=== PATIENT | female | born 1950 | race Caucasian/White ===

== ENCOUNTER → 2020-08-07 11:17 | Outpatient (BNVA) | payer MEDICARE, MEDICAID, SELFPAY | PROVIDERS: PCP Nurse Practitioner Family; Visit Provider Internal Medicine Rheumatology | DX: M05.79 Rheumatoid arthritis with rheumatoid factor of multiple sites without organ or systems involvement (principal); R76.8 Other specified abnormal immunological findings in serum; M15.4 Erosive (osteo)arthritis; F17.210 Nicotine dependence, cigarettes, uncomplicated; Z79.899 Other long term (current) drug therapy | CPT/HCPCS: 99204 ==

== ENCOUNTER → 2020-11-25 14:31 | Outpatient (BNVA) | payer MEDICARE, MEDICAID, SELFPAY | PROVIDERS: PCP Nurse Practitioner Family; Visit Provider Internal Medicine Rheumatology | DX: M05.79 Rheumatoid arthritis with rheumatoid factor of multiple sites without organ or systems involvement (principal); Z79.899 Other long term (current) drug therapy; Z79.52 Long term (current) use of systemic steroids; M15.4 Erosive (osteo)arthritis; R76.8 Other specified abnormal immunological findings in serum; F17.210 Nicotine dependence, cigarettes, uncomplicated | CPT/HCPCS: 99214 ==

== ENCOUNTER → 2021-05-20 08:59 | Outpatient (BNVA) | payer MEDICARE, MEDICAID, SELFPAY | PROVIDERS: PCP Nurse Practitioner; Visit Provider Internal Medicine Rheumatology | DX: M05.79 Rheumatoid arthritis with rheumatoid factor of multiple sites without organ or systems involvement (principal); Z79.899 Other long term (current) drug therapy; M15.4 Erosive (osteo)arthritis; R76.8 Other specified abnormal immunological findings in serum; Z71.89 Other specified counseling | CPT/HCPCS: 36415; 80076; 82565; 85025; 86140 ==

== ENCOUNTER → 2021-08-31 08:21 | Outpatient (BNVA) | payer MEDICARE, MEDICAID, SELFPAY | PROVIDERS: PCP Nurse Practitioner; Visit Provider Internal Medicine Rheumatology | DX: M05.79 Rheumatoid arthritis with rheumatoid factor of multiple sites without organ or systems involvement (principal); Z79.899 Other long term (current) drug therapy; Z71.89 Other specified counseling; R76.8 Other specified abnormal immunological findings in serum; M15.4 Erosive (osteo)arthritis | CPT/HCPCS: 80076; 82565; 85025; 86140 ==

== ENCOUNTER → 2021-09-22 09:22 | Outpatient (BNVA) | payer MEDICARE, MEDICAID, SELFPAY | PROVIDERS: PCP Nurse Practitioner; Visit Provider Internal Medicine Rheumatology | DX: R79.89 Other specified abnormal findings of blood chemistry (principal) | CPT/HCPCS: 85025 ==

== ENCOUNTER → 2021-09-30 09:55 | Outpatient (BNVA) | payer MEDICARE, MEDICAID, SELFPAY | PROVIDERS: PCP Nurse Practitioner; Visit Provider Nurse Practitioner | DX: D72.829 Elevated white blood cell count, unspecified (principal); E55.9 Vitamin D deficiency, unspecified | CPT/HCPCS: 71046; 74018; 80053; 82306; 82607; 84443; 85025 ==

== ENCOUNTER → 2021-11-17 09:47 | Outpatient (BNVA) | payer MEDICARE, MEDICAID, SELFPAY | PROVIDERS: PCP Nurse Practitioner; Visit Provider Internal Medicine Rheumatology | DX: M05.79 Rheumatoid arthritis with rheumatoid factor of multiple sites without organ or systems involvement (principal); M15.4 Erosive (osteo)arthritis; Z79.899 Other long term (current) drug therapy; R76.8 Other specified abnormal immunological findings in serum; Z71.89 Other specified counseling; F17.200 Nicotine dependence, unspecified, uncomplicated | CPT/HCPCS: 99214 ==

== ENCOUNTER → 2021-12-15 14:25 | Outpatient (BNVA) | payer MEDICARE, MEDICAID, SELFPAY | PROVIDERS: PCP Nurse Practitioner; Visit Provider Nurse Practitioner Family | DX: R50.9 Fever, unspecified (principal) | CPT/HCPCS: 87635 ==

== ENCOUNTER → 2022-02-16 08:29 | Outpatient (BNVA) | payer MEDICARE, MEDICAID, SELFPAY | PROVIDERS: PCP Nurse Practitioner; Visit Provider Internal Medicine Rheumatology | DX: M05.79 Rheumatoid arthritis with rheumatoid factor of multiple sites without organ or systems involvement (principal); Z79.899 Other long term (current) drug therapy; Z71.89 Other specified counseling | CPT/HCPCS: 80076; 82565; 85025; 86140 ==

== ENCOUNTER → 2022-03-17 13:42 | Outpatient (BNVA) | payer MEDICARE, MEDICAID, SELFPAY | PROVIDERS: PCP Nurse Practitioner; Visit Provider Internal Medicine Rheumatology | DX: M05.79 Rheumatoid arthritis with rheumatoid factor of multiple sites without organ or systems involvement (principal); M15.4 Erosive (osteo)arthritis; R76.8 Other specified abnormal immunological findings in serum; Z79.899 Other long term (current) drug therapy; Z79.52 Long term (current) use of systemic steroids; Z71.89 Other specified counseling; F17.200 Nicotine dependence, unspecified, uncomplicated | CPT/HCPCS: 99214 ==

== ENCOUNTER → 2022-10-19 15:09 | Outpatient (BNVA) | payer MEDICARE, MEDICAID, SELFPAY | PROVIDERS: PCP Nurse Practitioner; Visit Provider Nurse Practitioner | DX: E55.9 Vitamin D deficiency, unspecified (principal); Z13.6 Encounter for screening for cardiovascular disorders; Z79.899 Other long term (current) drug therapy | CPT/HCPCS: 80053; 82306; 82607; 84443; 85025 ==

== ENCOUNTER → 2022-11-01 08:23 | Outpatient (BNVA) | payer MEDICARE, MEDICAID, SELFPAY | PROVIDERS: PCP Nurse Practitioner; Visit Provider Nurse Practitioner | DX: D64.9 Anemia, unspecified (principal) | CPT/HCPCS: 83550 ==

== ENCOUNTER → 2022-11-02 08:29 | Outpatient (BNVA) | payer MEDICARE, MEDICAID, SELFPAY | PROVIDERS: PCP Nurse Practitioner; Visit Provider Nurse Practitioner | DX: D64.9 Anemia, unspecified (principal) | CPT/HCPCS: 82270 ==

== ENCOUNTER → 2023-03-02 09:41 | Outpatient (BNVA) | payer MEDICARE, MEDICAID, SELFPAY | PROVIDERS: PCP Nurse Practitioner; Visit Provider Nurse Practitioner | DX: R63.4 Abnormal weight loss (principal); E61.1 Iron deficiency | CPT/HCPCS: 71046; 74018; 80053; 83550; 85025 ==

== ENCOUNTER → 2023-09-15 11:55 | Outpatient (BNVA) | payer MEDICARE, MEDICAID, SELFPAY | PROVIDERS: PCP Nurse Practitioner; Visit Provider Nurse Practitioner | DX: E61.1 Iron deficiency (principal); M05.79 Rheumatoid arthritis with rheumatoid factor of multiple sites without organ or systems involvement | CPT/HCPCS: 80053; 83550; 84443; 85025 ==

== ENCOUNTER 2025-05-23 18:32 | Observation (INO) | payer MEDICARE, MEDICAID, SELFPAY ==
[2025-05-23] VITALS (8 sets, daily range): BP systolic 143–168; BP diastolic 76–85; PULSE 82–101; RESP 16; TEMP 36.8–37.2; O2SAT 91–99; BMI 23.8; BMI 17.0
--- NOTE | 2025-05-23 18:51 | ED_ITS ---
HPI - Weakness 2 General: Chief complaint: Weakness Stated complaint: heat exhaustion Time Seen by Provider: 05/23/25 18:35 History of Present Illness: 75-year-old female who presents emergenc y room after she fell and could not get up. She got out to get a package and leaned forward to pick it up and fell forward and could not get back up. She was out in the heat for possibly over an hour. When EMS arrived her temp was 102. By the time she arrives here temps down to 98.9. No altered mental status. No focal motor deficits. She did not hit her head. She has some mild skin tears on her left hand but no other major injuries. Related Data Home Medications ?Medication ?Instructions ?Recorded ?Confirmed acetaminophen 500 mg capsule 500 mg PO TID PRN 0 03/03/23 Balance of nature fruits See Rx Instructions .Route . COMPLEX 09/18/23 Balance of nature veggies See Rx Instructions .Route . COMPLEX 09/18/23 09/18/23 Allergies Allergy/AdvReac Type Severity Reaction Status Date / Time sulfasalazine AdvReac Intermediate severe N/V Verified 10/27/23 13:10 Review of Systems 2 Narrative: Constitutional symptoms: Negative except as documented in HPI. Skin symptoms: Negative except as documented in HPI. Eye symptoms: Negative except as documented in HPI. ENMT symptoms: Negative except as documented in HPI. Respiratory symptoms: Negative except as documented in HPI. Cardiovascular symptoms: Negative except as documented in HPI. Gastrointestinal symptoms: Negative except as documented in HPI. Genitourinary symptoms: Negative except as documented in HPI. Musculoskeletal symptoms: Negative except as documented in HPI. Neurologic symptoms: Negative except as documented in HPI. Psychiatric symptoms: Negative except as documented in HPI. Endocrine symptoms: Negative except as documented in HPI. PFSH ED 2 PFSH: Medical History (Updated 05/23/25 @ 20:41 by Scarlett Sanchez MD) Erosive osteoarthritis of both hands Seropositive rheumatoid arthritis of multiple sites Osteoarthritis Joint pain Positive DAIANA (antinuclear antibody) High risk medication use Immunization counseling Rheumatoid arthritis with rheumatoid factor Surgical History History of tubal ligation Family History Brother Cancer Prostate Other Rheumatoid arthritis Denies family history of Diabetes Lupus CAD (coronary artery disease) Hyperlipidemia Chronic kidney disease (CKD) Lung disease Hypertension Stroke Social History Smoking and tobacco/nicotine status: current every day tobacco/nicotine user Second hand smoke exposure: No Alcohol intake: former Substance/Drug Use: never Caregiver/support person: No Lives independently: Yes Household members: none Housing: House Marital status: / Number of children: 3 service: No Current occupational status: retired Do you think of yourself as: Straight/Heterosexual Current gender identity: Female Physical Exam 2 Narrative: EXAM NARRATIVE: General: Alert, no acute distress. Skin: Warm, dry. Skin tears on the left hand. Head: Normocephalic, atraumatic. Neck: Supple, trachea midline. Eye: Extraocular movements are intact. Ears, nose, mouth and throat: mucosa moist. Cardiovascular: Regular, Normal peripheral perfusion. Respiratory: Lungs are clear to auscultation, respirations are non-labored, breath sounds are equal, Symmetrical chest wall expansion. Gastrointestinal: Soft, Nontender, Non distended Musculoskeletal: Normal ROM, no deformity. Neurological: Alert and oriented, No focal neurological deficit observed. Psychiatric: Cooperative, appropriate mood & affect. Course 2 Vital Signs: Vital signs: Vital Signs Temperature 98.9 F 05/23/25 18:34 Pulse Rate 90 05/23/25 20:00 Respiratory Rate 16 05/23/25 18:34 Blood Pressure 168/77 05/23/25 19:00 Pulse Oximetry 99 05/23/25 20:00 Oxygen Delivery Me thod Nasal Cannula 05/23/25 20:00 Oxygen Flow Rate 2 05/23/25 20:00 MDM - Weakness Medical Decision Making Medical decision making: Differential diagnosis including but not limited to and based on the above HPI, review of systems and physical exam: In this patient with heat exposure would have concern for rhabdomyolysis or renal failure. Basic lab work was ordered along with a CK. Orders placed to evaluate differential diagnosis based on the above differential, HPI and physical exam Lab Review: Laboratory results were reviewed and interpreted by myself the emergency room physician. No leukocytosis. Stable anemia with a hemoglobin of 8.5. BUN and creatinine 22 and 0.7. CK is not elevated. CT of the abdomen pelvis without contrast: No abdominal injuries. Pelvic fractures as listed below. See further read below. This was reviewed and interpreted by myself the emergency room physician. I also reviewed the radiology report. I reviewed the patient's medical record. Reexamination: Patient's pain has improved without movement and with Dilaudid. No increased work of breathing. No altered mental status. Consultation: I spoke with Dr. Larry who is on-call for orthopedics. He feels that is a fairly stable fracture and will consult on the patient. Agrees with admission to the hospitalist for pain control. Consultation: I spoke with Dr. Fry who is on-call for the hospital service who agrees to admission. Assessment and plan: Fall Pelvic fractures Dehydration Heat exposure ?Normal saline bolus, Dilaudid and Zofran. -I discussed the patient with the hospitalist on-call who is admitting the patient. - Discussed findings and plan with patient. Answered any questions. - All laboratory values were reviewed and interpreted personally by myself, the ER physician - All imaging was reviewed and interpreted personally by myself, the ER physician. - Evaluation and treatment of this problem were appropriate in the emergency setting Lab Data 05/23/25 18:50 05/23/25 18:50 Radiology Impressions Abdomen/Pelvis CT 05/23/25 19:35 IMPRESSION: 1. No definitive evidence of visceral injury in the abdomen or pelvis. 2. Acute appearing right pubic symphyseal and anterior acetabular fractures with trace adjacent hematoma. 3. Probable acute right sacral fracture with trace adjacent hematoma. 4. Chronic appearing fractures of T12, L1, and L3. Consider MR if acute fracture is suspected. 5. Age-indeterminate right lateral 8th rib fracture. Correlate with physical exam. 6. Questionable vague low-density lesion in the head of the pancreas likely related to adjacent duodenum though not well assessed on noncontrast imaging. Consider pancreatic protocol CT or MR as indicated. Laboratory Results WBC 12.86 10^3/uL (3.29-11.43) H 05/23/25 18:50 RBC 3.57 10^6/uL (3.85-5.65) L 05/23/25 18:50 Hgb 8.50 g/dL (11.27-16.99) L 05/23/25 18:50 Hct 27.7 % (36-47) L 05/23/25 18:50 MCV 77.6 fl (85-98) L 05/23/25 18:50 MCH 23.8 pg (27-33) L 05/23/25 18:50 MCHC 30.7 g/dL (30-55) 05/23/25 18:50 RDW 21.1 % (12.1-15.1) H 05/23/25 18:50 Plt Count 389 10^3/cmm (157-399) 05/23/25 18:50 MPV 8.8 fL (7.4-10.4) 05/23/25 18:50 Neut % (Auto) 90.2 % 05/23/25 18:50 Lymph % (Auto) 4.7 % 05/23/25 18:50 [place] % (Auto) 3.3 % 05/23/25 18:50 Eos % (Auto) 0.2 % 05/23/25 18:50 Baso % (Auto) 0.2 % 05/23/25 18:50 Neut # (Auto) 11.60 10^3/uL (1.8-7.7) H 05/23/25 18:50 Lymph # (Auto) 0.6 10^3/uL (0.8-4.8) L 05/23/25 18:50 [place] # (Auto) 0.4 10^3/uL (0.2-0.9) 05/23/25 18:50 Eos # (Auto) 0.0 10^3/uL (0.0-0.8) 05/23/25 18:50 Baso # (Auto) 0.0 10^3/uL (0.0-0.1) 05/23/25 18:50 Nucleated RBC % (auto) 0 % 05/23/25 18:50 Nucleated RBCs # 0.0 /100WBC 05/23/25 18:50 Sodium 135 mmol/L (136-145) L 05/23/25 18:50 Potassium 3.5 mmol/L (3.5-5.1) 05/23/25 18:50 Chloride 101 mmol/L (98-107) 05/23/25 18:50 Carbon Dioxide 17 mmol/L (22-29) L 05/23/25 18:50 Anion Gap 20.5 (5-19) H 05/23/25 18:50 BUN 22 mg/dL (8-23) 05/23/25 18:50 Creatinine 0.7 mg/dL (0.5-0.9) 05/23/25 18:50 GFR Calculation Not Reportable 05/23/25 18:50 Glucose 124 mg/dL (65-115) H 05/23/25 18:50 Calculated Osmolality 285 mOsm/kg (285-295) 05/23/25 18:50 Calcium 8.9 mg/dL (8.5-10.5) 05/23/25 18:50 Total Bilirubin 0.2 mg/dL (0.15-1.2) 05/23/25 18:50 AST 28 U/L (0-32) 05/23/25 18:50 ALT 21 U/L (0-33) 05/23/25 18:50 Alkaline Phosphatase 174 U/L (35-105) H 05/23/25 18:50 Creatine Kinase 92 U/L (26-192) 05/23/25 18:50 Total Protein 6.9 g/dL (6.6-8.7) 05/23/25 18:50 Albumin 3.2 g/dL (3.5-5.2) L 05/23/25 18:50 Globulin 3.7 g/dL (1.3-4.6) 05/23/25 18:50 All radiology interpretation(s) finalized by discharge Discharge Plan Discharge Patient Disposition: Admitted As Inpatient Clinical Impression: Closed pelvic fracture, Fall, Heat exposure, Dehydration Condition: Stable Coding Level of Care Code ED Adult Parole Officer for Lashanda Weston
[2025-05-23 19:02] LABS: Hematocrit 27.7 % (36-47); Hemoglobin 8.50 g/dL (11.27-16.99); Mean Corpuscular HGB Conc 30.7 g/dL (30-55); Mean Corpuscular Hemoglobin 23.8 pg (27-33); Mean Corpuscular Volume 77.6 fl (85-98); Nucleated Red Blood Cells % 0 %; Platelet Count 389 10^3/cmm (157-399); Red Blood Count 3.57 10^6/uL (3.85-5.65); White Blood Count 12.86 10^3/uL (3.29-11.43)
[2025-05-23 19:20] LABS: Alanine Aminotransferase 21 U/L (0-33); Albumin Level 3.2 g/dL (3.5-5.2); Alkaline Phosphatase 174 U/L (35-105); Anion Gap 20.5 (5-19); Aspartate Amino Transferase 28 U/L (0-32); Blood Urea Nitrogen 22 mg/dL (8-23); Calcium 8.9 mg/dL (8.5-10.5); Carbon Dioxide 17 mmol/L (22-29); Chloride 101 mmol/L (98-107); Creatinine Clr Calc Pharmacy 52.2497; Globulin 3.7 g/dL (1.3-4.6); Glucose 124 mg/dL (65-115); Osmolality Calculated 285 mOsm/kg (285-295); Potassium 3.5 mmol/L (3.5-5.1); Sodium 135 mmol/L (136-145); Total Protein 6.9 g/dL (6.6-8.7)
--- NOTE | 2025-05-23 19:35 | CTR_ITS ---
PROCEDURE INFORMATION: Exam: CT Abdomen And Pelvis Without Contrast Exam date and time: 05/23/2025 7:55 PM Age: 75 years old Clinical indication: Injury or trauma; Fall; Blunt; Generalized; Additional info: Fall, chest and pelvic pain right TECHNIQUE: Imaging protocol: Computed tomography of the abdomen and pelvis without contrast. Radiation optimization: All CT scans at this facility use at least one of these dose optimization techniques: automated exposure control; mA and/or kV adjustment per patient size (includes targeted exams where dose is matched to clinical indication); or iterative reconstruction. COMPARISON: CR XR abdomen 1V* [id number] 03/02/2023 9:41 AM RADIATION DOSE METRICS: Total DLP (mGy-cm): 285.93 FINDINGS: Lungs: Bibasilar atelectasis and/or scarring. Heart: Heart size is within normal limits. There is no pericardial effusion or pericardial thickening. Liver: The liver is normal. No hepatic masses are identified. Gallbladder and biliary ducts: The gallbladder is normal. There is no ductal dilatation. Pancreas: Questionable vague low-density lesion in the head of the pancreas likely related to adjacent duodenum though not well assessed on noncontrast imaging. Spleen: Single splenic granuloma. The spleen is otherwise normal. Adrenal glands: The adrenal glands are normal. Kidneys and ureters: No renal calcifications are identified. There is no hydronephrosis. Stomach and bowel: There is no large or small bowel obstruction. There is no evidence of bowel wall thickening. Appendix: A normal appendix is not identified. There is no secondary evidence of acute appendicitis. Intraperitoneal space: No inflammatory changes are identified. There is no free fluid or fluid collection seen. There is no pneumoperitoneum. Vasculature: Atherosclerotic calcifications of the aorta are present. No aneurysm is identified. Lymph nodes: No enlarged lymph nodes are identified. No enlarged lymph nodes are identified. Urinary bladder: The bladder is unremarkable. Reproductive: The uterus is present. Bones/joints: Chronic appearing left lateral 11th rib fracture. Chronic appearing bilateral inferior pubic rami fractures. Mildly displaced acute appearing right pubic symphyseal fracture. Acute appearing right anterior acetabular fracture. Questionable acute right sacral fracture. Chronic appearing fractures of T12, L1, and L3. Age-indeterminate right lateral 8th rib fracture. Soft tissues: Unremarkable. CT/CT abdomen pelvis wo con [id number] IMPRESSION: 1. No definitive evidence of visceral injury in the abdomen or pelvis. 2. Acute appearing right pubic symphyseal and anterior acetabular fractures with trace adjacent hematoma. 3. Probable acute right sacral fracture with trace adjacent hematoma. 4. Chronic appearing fractures of T12, L1, and L3. Consider MR if acute fracture is suspected. 5. Age-indeterminate right lateral 8th rib fracture. Correlate with physical exam. 6. Questionable vague low-density lesion in the head of the pancreas likely related to adjacent duodenum though not well assessed on noncontrast imaging. Consider pancreatic protocol CT or MR as indicated.
[2025-05-23] MEDS: ondansetron 2 mg/ML SDV 2 mL 4 MG IVP (19:38)
[2025-05-23] MEDS: HYDROmorphone 0.5 MG/0.5 ML INJ 1 MG IVP (19:38)
[2025-05-23 20:54] LABS: Lactic Sepsis W/Reflex 2.4 mmol/L (0.5-2.2)
--- NOTE | 2025-05-23 21:00 | P.HP_ITS ---
Providers/Chief Complaint 2 Admitting Physician: Randi Hidalgo MD Primary Care Provider: Polly Singleton, GARBAGE WORKER-C Chief Complaint: heat exhaustion History of Present Illness Jeny Billings is a 75 year old female With a past medical history of rheumatoid arthritis, lives at home with her grandson. She was walking outdoors in her house to product picker a package from the porch when she slipped and had a mechanical fall. She was unable to get up thereafter and remained out in the sun for several hours until her grandson returned home at about 5 PM and found her outside. She states that she did not recall the events from when she was down. Denies any dizziness palpitations chest pain prior to the episode. She has not been ill recently. Denies any fever chills nausea vomiting or diarrhea. At the time of EMS pickup, her fever was noted to be 102 Fahrenheit. Patient reports that she has a very sensitive neck and has had episodes of syncope when the right side of her neck is stimulated. Suspect that she may be referring to vasovagal events. There is no history of head injury. CT of the abdomen and pelvis was performed upon ER arrival due to complaints of pain and she has been found to have no evidence of visceral injury. There is a right pubic symphyseal and anterior acetabular fracture with a small hematoma adjacent. There is an acute right sacral fracture with trace hematoma. There are other chronic appearing fractures at T12-L1 and L3 and a right lateral eighth rib fracture. Patient denies any specific complaints at this time and her pain is currently adequately controlled. Review of Systems 2 General: Reports: 10 or more systems reviewed and unremarkable except in HPI and below Const: Denies: fever(s), chills or body aches Eyes: Denies: change in vision, blurry vision or photophobia ENMT: Reports: hoarseness; Denies: throat pain, enlarged tonsils, odynophagia or nasal congestion Card: Denies: chest pain, palpitations, irregular heart rhythm, edema, swelling of feet/ankles, lightheadedness, pre-syncope, dyspnea on exertion or orthopnea Resp: Denies: dyspnea, productive cough, non-productive cough, wheezing, stridor, pain on inspiration, change in phlegm color, hemoptysis or chest congestion GI: Denies: abdominal pain, nausea, vomiting, hematemesis, coffee ground emesis, dysphagia, heartburn, diarrhea, constipation, GI cramping, change in stool character, hematochezia or melena : Denies: flank pain, difficulty voiding, dysuria, urinary frequency, urinary urgency, urinary hesitancy or hematuria Musc: Denies: neck pain, back pain, extremity pain, joint swelling, joint warmth or deformity Neuro: Denies: headache(s), numbness in extremities, weakness in extremities, sensory changes, difficulty walking, frequent falls, dizziness, vertigo, behavioral changes, Slurred speech present or seizure-like activity Psych: Denies: anxiety, depression, suicidal ideation or homicidal ideation Endo: Denies: polyuria, polydipsia, tired all the time, cold intolerance or hot flashes David/Lymph: Denies: easy bruising or easy bleeding Medications/Allergies Home Medications ?Medication ?Instructions ?Recorded ?Confirmed ?Last Taken ?Type acetaminophen 500 mg capsule 500 mg PO TID PRN Pain, M ild 08/07/20 05/23/25 Unknown History Allergies Allergy/AdvReac Type Severity Reaction Status Date / Time sulfasalazine AdvReac Intermediate severe N/V Verified 10/27/23 13:10 PFSH Acute 2 PFSH: Medical History Erosive osteoarthritis of both hands Seropositive rheumatoid arthritis of multiple sites Osteoarthritis Joint pain Positive DAIANA (antinuclear antibody) High risk medication use Immunization counseling Rheumatoid arthritis with rheumatoid factor Surgical History History of tubal ligation Family History Brother Cancer Prostate Other Rheumatoid arthritis Denies family history of Diabetes Lupus CAD (coronary artery disease) Hyperlipidemia Chronic kidney disease (CKD) Lung disease Hypertension Stroke Social History Smoking and tobacco/nicotine status: current every day tobacco/nicotine user Second hand smoke exposure: No Alcohol intake: former Substance/Drug Use: never Caregiver/support person: No Lives independently: Yes Household members: none Housing: House Marital status: / Number of children: 3 service: No Current occupational status: retired Do you think of yourself as: Straight/Heterosexual Current gender identity: Female Vitals/I&O/Wt Last Vital Signs Temp 98.9 F 05/23/25 18:34 Pulse 90 05/23/25 21:31 Resp 16 05/23/25 18:34 BP 157/77 05/23/25 21:31 Pulse Ox 96 05/23/25 21:31 O2 Del Method Room Air 05/23/25 21:00 O2 Flow Rate 2 05/23/25 20:00 05/23/25 05/23/25 05/23/25 06:59 14:59 22:59 Intake Total 1000 / 1000 Balance 1000 / 1000 Weight last 48 hrs Weight 58.967 kg Physical Exam 2 Narrative: General: No acute distress, AO x3 HEENT: PERRLA, pupils bilaterally equal and reactive, pallors not present Chest: Normal vesicular breath sounds, no added sounds, equal good air entry bilaterally CVS: S1-S2 regular, no murmurs, no tachycardia, no gallops, no rubs Abdomen: Soft, nontender, no organomegaly, bowel sounds present Neuro: No focal deficits, no facial deformity, AO x3, power 5/5 in all limbs Data 05/24/25 04:43 05/24/25 04:43 Other Labs: [place] [address] CT Scan Report Signed Patient: Jeny Billings Unit #: [id number] : 1950 Age/Sex: 75 / F ADM Date: 05/23/25 Loc: ER Room/Bed: Attending Dr: Ordering Provider/Ordering MD: Scarlett Sanchez MD Date of Service: 05/23/25 Procedure(s): CT abdomen pelvis wo con [id number] Accession Number(s): [id number] Report Number: [id number] PROCEDURE INFORMATION: Exam: CT Abdomen And Pelvis Without Contrast Exam date and time: 05/23/2025 7:55 PM Age: 75 years old Clinical indication: Injury or trauma; Fall; Blunt; Generalized; Additional info: Fall, chest and pelvic pain right TECHNIQUE: Imaging protocol: Computed tomography of the abdomen and pelvis without contrast. Radiation optimization: All CT scans at this facility use at least one of these dose optimization techniques: automated exposure control; mA and/or kV adjustment per patient size (includes targeted exams where dose is matched to clinical indication); or iterative reconstruction. COMPARISON: CR XR abdomen 1V* [id number] 03/02/2023 9:41 AM RADIATION DOSE METRICS: Total DLP (mGy-cm): 285.93 FINDINGS: Lungs: Bibasilar atelectasis and/or scarring. Heart: Heart size is within normal limits. There is no pericardial effusion or pericardial thickening. Liver: The liver is normal. No hepatic masses are identified. Gallbladder and biliary ducts: The gallbladder is normal. There is no ductal dilatation. Pancreas: Questionable vague low-density lesion in the head of the pancreas likely related to adjacent duodenum though not well assessed on noncontrast imaging. Spleen: Single splenic granuloma. The spleen is otherwise normal. Adrenal glands: The adrenal glands are normal. Kidneys and ureters: No renal calcifications are identified. There is no hydronephrosis. Stomach and bowel: There is no large or small bowel obstruction. There is no evidence of bowel wall thickening. Appendix: A normal appendix is not identified. There is no secondary evidence of acute appendicitis. Intraperitoneal space: No inflammatory changes are identified. There is no free fluid or fluid collection seen. There is no pneumoperitoneum. Vasculature: Atherosclerotic calcifications of the aorta are present. No aneurysm is identified. Lymph nodes: No enlarged lymph nodes are identified. No enlarged lymph nodes are identified. Urinary bladder: The bladder is unremarkable. Reproductive: The uterus is present. Bones/joints: Chronic appearing left lateral 11th rib fracture. Chronic appearing bilateral inferior pubic rami fractures. Mildly displaced acute appearing right pubic symphyseal fracture. Acute appearing right anterior acetabular fracture. Questionable acute right sacral fracture. Chronic appearing fractures of T12, L1, and L3. Age-indeterminate right lateral 8th rib fracture. Soft tissues: Unremarkable. CT/CT abdomen pelvis wo con [id number] IMPRESSION: 1. No definitive evidence of visceral injury in the abdomen or pelvis. 2. Acute appearing right pubic symphyseal and anterior acetabular fractures with trace adjacent hematoma. 3. Probable acute right sacral fracture with trace adjacent hematoma. 4. Chronic appearing fractures of T12, L1, and L3. Consider MR if acute fracture is suspected. 5. Age-indeterminate right lateral 8th rib fracture. Correlate with physical exam. 6. Questionable vague low-density lesion in the head of the pancreas likely related to adjacent duodenum though not well assessed on noncontrast imaging. Consider pancreatic protocol CT or MR as indicated. A&P Assessment and plan 1. Closed pelvic fracture: 2. Fracture of anterior column of acetabulum: 3. Sacral fracture: 4. Fever: 5. Chronic anemia: Plan: 75-year-old lady with past medical history of rheumatoid arthritis and several joint deformities suffered a mechanical fall at home earlier today. She estimates that she was out on her porch as she was unable to get up after the fall and remained there for a few hours until being discovered by her grandson at 5 PM No head injury CT of the abdomen and pelvis shows an anterior acetabular fracture on the right side, right pubic symphyseal fracture and an acute right sacral fracture with trace hematoma surrounding. Orthopedic service has been consulted from the emergency room. Pain control with as needed morphine 2 mg every 4 hours as needed. Add bowel regimen with lactulose 10 g p.o. daily as needed. PT OT evaluation ordered. Chronic anemia, hemoglobin at 7.8, previous baseline between 8.2-9.8 Check iron panel, ferritin, B12 and folate DVT ppx: SCd only given hematomas on CT Full code Dispo: patient refuses placement to SNF for rehab, will prefer to return home at discharge PDMP PDMP Reviewed: Not Reviewed Attestations 2 Medical Necessity Statement*: > 2 midnight stay anticipated Coding Level of Care Code Acute Code for Chg Fwd High MDM includes number and complexity of problems actively addressed during encounter, amount and/or complexity of data reviewed/ordered and described risk of complication, morbidity or mortality of management as documented Diagnoses Closed pelvic fracture S32.9XXA Fracture of anterior column of acetabulum S32.433A Sacral fracture S32.10XA Fever R50.9 Chronic anemia D64.9
[2025-05-23 21:01] LABS: Procalcitonin 2.47 ng/mL (0-0.5)
[2025-05-23 21:04] LABS: Reflex Lactate Order REFLEX LACTIC ORDERD
[2025-05-23 21:17] LABS: PCP Screen Urine Negative (Negative)
[2025-05-23] MEDS: cefTRIAXone 1,000 mg SDV 1000 MG IVP (21:43)
[2025-05-23 22:31] LABS: Glucose Urine UA Negative (Normal); Nitrate Urine Negative (Negative); Specific Gravity, Urine 1.013 (1.005-1.030)
[2025-05-23 22:34] LABS: Lactic Acid level (Lactate) 1.1 mmol/L (0.5-2.2)
[2025-05-23 22:36] LABS: Add Urine Microscopic? YES
[2025-05-23 22:52] LABS: Estmated Average Glucose 111; Hemoglobin A1C 5.5 % (4.0-6.0)
[2025-05-23] MEDS: iron sucrose 200 MG in sodium chloride 0.9% (100 ml) 100 ML 220 MG IV (23:01)
[2025-05-24] VITALS (14 sets, daily range): BP systolic 141–161; BP diastolic 56–73; PULSE 66–79; RESP 15–18; TEMP 36.4–37.1; O2SAT 90–97
[2025-05-24 00:26] LABS: Iron 41 ug/dL (37-145); Thyroid Stimulating Hormone 3.55 uIU/mL (0.27-4.20); Total Iron Binding Capacity 299 mcg/dl; Unsaturated Iron Binding 258 ug/dL (112-347); Vitamin B12 362 pg/mL (232-1245)
[2025-05-24] MEDS: oxyCODONE-APAP 5-325 mg Tablet 1 TAB PO ×4 (03:48→21:36)
[2025-05-24 04:58] LABS: Hematocrit 25.9 % (36-47); Hemoglobin 7.80 g/dL (11.27-16.99); Mean Corpuscular HGB Conc 30.1 g/dL (30-55); Mean Corpuscular Hemoglobin 23.5 pg (27-33); Mean Corpuscular Volume 78.0 fl (85-98); Nucleated Red Blood Cells % 0 %; Platelet Count 324 10^3/cmm (157-399); Red Blood Count 3.32 10^6/uL (3.85-5.65); White Blood Count 6.09 10^3/uL (3.29-11.43)
[2025-05-24 05:27] LABS: Alanine Aminotransferase 18 U/L (0-33); Albumin Level 3.0 g/dL (3.5-5.2); Alkaline Phosphatase 150 U/L (35-105); Anion Gap 13.7 (5-19); Blood Urea Nitrogen 12 mg/dL (8-23); Calcium 8.1 mg/dL (8.5-10.5); Carbon Dioxide 19 mmol/L (22-29); Chloride 106 mmol/L (98-107); Creatinine Clr Calc Pharmacy 45.7644; Globulin 3.5 g/dL (1.3-4.6); Glucose 104 mg/dL (65-115); Magnesium 1.9 mg/dL (1.7-2.3); Osmolality Calculated 280 mOsm/kg (285-295); Potassium 3.7 mmol/L (3.5-5.1); Sodium 135 mmol/L (136-145); Total Protein 6.5 g/dL (6.6-8.7)
[2025-05-24 05:29] LABS: Cholesterol 94 mg/dL (0-200); HDL Cholesterol 36 mg/dL (60-100); Triglycerides 64 mg/dL (0-150)
[2025-05-24 05:32] LABS: Procalcitonin 31.81 ng/mL (0-0.5)
[2025-05-24 05:37] LABS: Aspartate Amino Transferase 23 U/L (0-32)
[2025-05-24 07:48] LABS: Ferritin 204 ng/mL (15-150); Iron 300 ug/dL (37-145)
--- NOTE | 2025-05-24 08:35 | P.CONIM_ITS ---
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 She was unable to get up and laid outside in the heat for several hours. I was consulted for pelvic fractures. She also has chronic compression fractures in her lumbar spine. Review of Systems 2 General: Reports: 10 or more systems reviewed and unremarkable except in HPI and below Const: Denies: fever(s), chills or body aches Eyes: Denies: change in vision, blurry vision or photophobia ENMT: Reports: hoarseness; Denies: throat pain, enlarged tonsils, odynophagia or nasal congestion Card: Denies: chest pain, palpitations, irregular heart rhythm, edema, swelling of feet/ankles, lightheadedness, pre-syncope, dyspnea on exertion or orthopnea Resp: Denies: dyspnea, productive cough, non-productive cough, wheezing, stridor, pain on inspiration, change in phlegm color, hemoptysis or chest congestion GI: Denies: abdominal pain, nausea, vomiting, hematemesis, coffee ground emesis, dysphagia, heartburn, diarrhea, constipation, GI cramping, change in stool character, hematochezia or melena : Denies: flank pain, difficulty voiding, dysuria, urinary frequency, urinary urgency, urinary hesitancy or hematuria Musc: Denies: neck pain, back pain, extremity pain, joint swelling, joint warmth or deformity Neuro: Denies: headache(s), numbness in extremities, weakness in extremities, sensory changes, difficulty walking, frequent falls, dizziness, vertigo, behavioral changes, Slurred speech present or seizure-like activity Psych: Denies: anxiety, depression, suicidal ideation or homicidal ideation Endo: Denies: polyuria, polydipsia, tired all the time, cold intolerance or hot flashes David/Lymph: Denies: easy bruising or easy bleeding Medications/Allergies Home Medications ?Medication ?Instructions ?Recorded ?Confirmed ?Last Taken ?Type acetaminophen 500 mg capsule 500 mg PO TID PRN Pain, M ild 08/07/20 05/23/25 Unknown History Allergies Allergy/AdvReac Type Severity Reaction Status Date / Time sulfasalazine AdvReac Intermediate severe N/V Verified 10/27/23 13:10 Current Medications Generic Name Dose Route Start Last Admin Trade Name Glen PRN Reason Stop Dose Admin Ceftriaxone Sodium 1,000 mg 05/23/25 21:36 05/23/25 21:43 Ceftriaxone 1,000 Mg Sdv IVP 1,000 mg Q24H JUJU Administration Protocol Sodium Chloride 1,000 mls @ 50 mls/hr 05/23/25 21:36 05/23/25 21:42 Sodium Chloride 0.9% IV 50 mls/hr .Q20H JUJU Administration Iron Sucrose 200 mg/ Sodium 110 mls @ 220 mls/hr 05/23/25 22:30 05/23/25 23:55 Chloride IV Infused On Hold: 05/24/25 08:34 Q24H JUJU Infusion Oxycodone/Acetaminophen 1 tab 05/23/25 21:36 05/24/25 03:48 Oxycodone-Apap 5-325 Mg Tablet PO 1 tab Q8H PRN Administration SEVERE PAIN PFSH Acute 2 PFSH: Medical History (Updated 05/24/25 @ 08:37 by Regino Larry DO) Erosive osteoarthritis of both hands Seropositive rheumatoid arthritis of multiple sites Osteoarthritis Joint pain Positive DAIANA (antinuclear antibody) High risk medication use Immunization counseling Rheumatoid arthritis with rheumatoid factor Surgical History History of tubal ligation Family History Brother Cancer Prostate Other Rheumatoid arthritis Denies family history of Diabetes Lupus CAD (coronary artery disease) Hyperlipidemia Chronic kidney disease (CKD) Lung disease Hypertension Stroke Social History Smoking and tobacco/nicotine status: current every day tobacco/nicotine user Second hand smoke exposure: No Alcohol intake: former Substance/Drug Use: never Caregiver/support person: No Lives independently: Yes Household members: none Housing: House Marital status: / Number of children: 3 service: No Current occupational status: retired Do you think of yourself as: Straight/Heterosexual Current gender identity: Female Vitals/I&O/Wt Last Vital Signs Temp 98.1 F 07/11/25 07:42 Pulse 66 05/24/25 07:42 Resp 18 05/24/25 07:42 BP 147/73 05/24/25 07:42 Pulse Ox 93 05/24/25 07:42 O2 Del Method Nasal Cannula 05/24/25 07:42 O2 Flow Rate 2 05/24/25 05:45 05/23/25 05/24/25 05/24/25 22:59 06:59 14:59 Intake Total 1000 / 1000 110 / 1110 Output Total 900 / 900 Balance 1000 / 1000 -790 / 210 Weight last 48 hrs Weight 95 lb Weight 93 lb 4.8 oz Weight 130 lb Physical Exam 2 Narrative: Alert and oriented x 3 Head is normocephalic atraumatic Respirations are intact No evidence of any rashes or infection 5/5 strength in bilateral upper and lowe r extremities Sensation intact in all extremities No pain to palpation of her lower extremities. Urinary Catheter Management: Mari: Cath Placed During This Visit: yes Reason for Continuing Indwelling Catheter: Required Immobilization for Trauma or Surgery or Anesthesia Urinary Catheter Date of Insertion: 05/23/25 Urinary Catheter Time of Insertion: 22:10 Data 05/24/25 04:43 05/24/25 04:43 A&P Assessment and plan 1. Multiple closed fractures of pelvis without disruption of pelvic ring, initial encounter: 2. Acute appearing right pubic symphyseal and anterior acetabular fractures with trace adjacent hematoma. 3. Probable acute right sacral fracture with trace adjacent hematoma. 4. Chronic appearing fractures of T12, L1, and L3. 5. Age-indeterminate right lateral 8th rib fracture. Correlate with physical exam. Patient can weight-bear as tolerated bilateral lower extremities Follow-up in orthopedic clinic in 2 weeks. PDMP PDMP Reviewed: Not Reviewed Coding Level of Care Code Acute Code for Chg Fwd Diagnoses Multiple closed fractures of pelvis without disruption of pelvic ring, initial encounter S32.82XA Encounter type: initial encounter Pelvic bone location: multiple parts Fracture alignment: without disruption of pelvic ring
--- NOTE | 2025-05-24 09:51 | USR_ITS ---
PROCEDURE INFORMATION: Exam: US Duplex Bilateral Extracranial Arteries; Complete; Carotid Arteries Exam date and time: 05/24/2025 3:48 PM Age: 75 years old Clinical indication: Dizziness; Additional info: Dizzyness TECHNIQUE: Imaging protocol: Real-time duplex ultrasound scan of the bilateral extracranial arteries combining odell scale, color Doppler and spectral waveform analysis with image documentation. Complete exam. Exam focused on the carotid arteries. COMPARISON: CT chest wo con [id number] 05/24/2025 11:06 AM FINDINGS: Right common carotid artery: No visible luminal narrowing. Normal waveform. Peak velocity 93/23 cm/s. Right internal carotid artery: No visible luminal narrowing. Normal waveform. Peak velocity 77/24 cm/second. Right ICA/CCA ratio: 1.5 (normal) Right external carotid artery: No stenosis at the origin. Right vertebral artery: Antegrade flow. Normal waveform. Peak velocity 97/12 cm/s. Left common carotid artery: No visible luminal narrowing. Normal waveform. Peak velocity 94/27 cm/s. Left internal carotid artery: No visible luminal narrowing. Normal waveform. Peak velocity 90/28 cm/s. Left ICA/CCA ratio: 1.3 (normal) Left external carotid artery: No stenosis at the origin. Left vertebral artery: Antegrade flow. Normal waveform. Peak velocity 68/27 cm/s. US/CV carotid duplex BI* [id number] IMPRESSION: No sign of hemodynamically significant carotid or vertebral artery stenosis. REFERENCES: SRU CRITERIA. The degree of internal carotid artery stenosis is based on criteria defined by the Society of Radiologists in Ultrasound (SRU). Normal is no stenosis. Mild is less than 50% stenosis. Moderate is 50-69% stenosis. Severe is greater than 69% stenosis to near occlusion. Near occlusion is a markedly narrowed lumen. Total occlusion is no detectable patent lumen. Reference: Tatum Vázquez, et al. Carotid Artery Stenosis: Odell-Scale and Doppler US Diagnosis-Society of Radiologists in Ultrasound Consensus Conference. Radiology 2003; 229:340-346.
--- NOTE | 2025-05-24 09:51 | USCV_ITS ---
Jeny Billings Age: 75 Gender: F : 1950 Exam Date: 05/24/2025 16:11 Ordering Phys: Bj Wells MD Technologist: Won Valdovinos [place] [facility] [place] sob BP: 148 / 56 HR: 70 Rhythm: Sinus Technical Quality: Adequate MEASUREMENTS (Male / Female) Normal Values 2D ECHO LV Diastolic Diameter PLAX 4.1 cm 4.2 - 5.9 / 3.9 - 5.3 cm IVS Diastolic Thickness 0.8 cm 0.6 - 1.0 / 0.6 - 0.9 cm LVPW Diastolic Thickness 1.3 cm 0.6 - 1.0 / 0.6 - 0.9 cm LVOT Diameter 2.0 cm LV Ejection Fraction MOD 4C 68.0 % LV Ejection Fraction MOD 2C 69.6 % LV Ejection Fraction 2C AL 69.2 % LA Diameter 3.0 cm RA Systolic Volume 4C AL 34.9 ml RA Systolic Volume 4C MOD 33.3 ml LA Sys Volume AL 31.0 cm cubed LA Sys Volume Index AL 22.7 cm cubed/m squared Aorta at Sinotubular Diameter 1.5 cm IVC Diameter 1.6 cm M-MODE LA Ao Ratio MM 1.3 AV Cusp Separation MM 0.9 cm DOPPLER LVOT Peak Velocity 103.0 cm/s AV Area Cont Eq vti 1.2 cm squared AV Area Cont Eq pk 1.4 cm squared MV Peak Velocity 118.0 cm/s MV Area PHT 4.6 cm squared Mitral E to A Ratio 1.0 TV Peak Velocity 318.5 cm/s TR Peak Velocity 338.0 cm/s TR Peak Gradient 45.7 mmHg TR Mean Velocity 262.0 cm/s TR Mean Gradient 29.7 mmHg TR Velocity Time Integral 103.6 cm PV Peak Velocity 91.0 cm/s RV Ejection Time 0.3 s FINDINGS Left Ventricle Left ventricle is normal in size. LV systolic function is normal with EF of 60-65%. No regional wall motion abnormalities are seen. Right Ventricle Normal in size and function Right Atrium Normal in size Left Atrium Normal in size Mitral Valve Structurally normal mitral valve. Trace mitral regurgitation. Aortic Valve Aortic valve is thickened and calcified. Moderate aortic stenosis with aortic valve area 1.26 cm2 and mean gradient of 14 mmHg Tricuspid Valve Mild tricuspid regurgitation. Insufficient TR jet to calculate RVSP Pulmonic Valve Trace pulmonic regurgitation Pericardium Normal Aorta Normal in size IVC Appears to be normal CONCLUSIONS LV systolic function is normal with EF of 60-65% Trace mitral regurgitation Moderate aortic stenosis Mild tricuspid regurgitation. Trace pulmonic regurgitation Kareem Licea MD (Electronically Signed) Final Date: 25 May 2025 12:00 S
--- NOTE | 2025-05-24 09:51 | CT_ITS ---
WS: [id number] Exam: CT chest wo con [id number] Date/Time of Exam: 05/24/2025 10:26 AM Reason For Exam: sob, wemikelg DLP: 208.[address] scans at [facility] use at least one of these dose optimization techniques: automated exposure control; mA and/or kV adjustment per patient size (includes targeted exams where dose is matched to clinical indication); or iterative reconstruction. The lungs are hyperinflated with emphysematous changes. A total of 5 subcentimeter soft tissue nodules are seen in the RIGHT lung. 2 in the RIGHT upper lobe that measure 4.4 and 5.6 mm in greatest diameter respectively. 2 in the RIGHT middle lobe that measure approximately 6.3 mm each in greatest diame ter. One in the RIGHT lower lobe measuring 6.6 mm in greatest diameter. A single noncalcified nodule seen in the lingula measuring 4.8 mm in greatest diameter. There is atelectasis and consolidation in the posterior basal segment of the RIGHT lower lobe. Dependent change and mild atelectasis in the posterior LEFT lower lobe. There is airway is patent. Normal thyroid lobes. There is some mucus along the RIGHT lateral wall of the trachea. No significant mediastinal or hilar lymphadenopathy. The thoracic aorta is normal in caliber. No pericardial effusion. Coronary artery calcifications. The chest wall is intact. No destructive bone lesions are seen. Several insufficiency compressions of the thoracic and lumbar vertebra are noted. Osteopenia. CT sections of the upper abdomen demonstrate no significant abnormal finding. CT/CT chest wo con [id number] IMPRESSION: 1. A total of 5 subcentimeter nonspecific nodular densities identified in the R IGHT lung as detailed above. One subcentimeter nodule also seen in the lingula. Lung metastasis not excluded but these may also be of benign etiology. 2. Consolidation and atelectasis in the posterior basal segment of the RIGHT lo wer lobe. Dependent change and mild atelectasis in the posterior LEFT lower lob e. 3. Pulmonary hyperinflation and emphysematous changes noted. 4. No significant lymphadenopathy in the chest.
[2025-05-24 10:45] LABS: Troponin(5th) Baseline 104 ng/L (0-10)
--- NOTE | 2025-05-24 11:26 | ECG_ITS ---
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 Measurements Intervals [place] Rate: 66 P: 95 ME: 166 QRS: 48 QRSD: 82 T: 58 QT: 397 QTc: 417 Interpretive Statements SINUS RHYTHM No previous ECG available for comparison Electronically Signed On 05-24-2025 15:06:03 CDT by Popeye Richter M.D. [id number]
--- NOTE | 2025-05-24 11:28 | PC.SOCIAL ---
IMM updated IMM dated and initialed, copy given to patient and copy placed in chart.
[2025-05-24 12:47] LABS: Troponin 5 2HR Delta -2.1 ABS# (0-10)
[2025-05-24 12:48] LABS: Troponin 5 2HR 101.9 ng/L (0-10)
--- NOTE | 2025-05-24 13:05 | P.PN_ITS ---
Subjective 2 Subjective: Patient was seen this morning, currently alert oriented x 3, following all commands her daughters at bedside, she denies any fevers no chills, does have a cough, denies any chest pain, she does report dizziness, dizziness upon changing positions, she was told at 1 point she had carotid artery stenosis,?, She denies a history of strokes, no cardiovascular history, she has never had any stents placed in her heart, we discussed her acute on chronic anemia, she denies receiving blood transfusions, denies bloody or black stools, she does report smoking, does have a cough, Vitals/I&O/Wt Last Vital Signs Temp 97.7 F 05/24/25 12:49 Pulse 70 05/24/25 12:49 Resp 17 05/24/25 12:49 BP 148/56 05/24/25 12:49 Pulse Ox 91 05/24/25 12:49 O2 Del Method Nasal Cannula 05/24/25 07:42 O2 Flow Rate 2 05/24/25 05:45 05/23/25 05/24/25 05/24/25 22:59 06:59 14:59 Intake Total 1000 / 1000 110 / 1110 360 / 360 Output Total 900 / 900 Balance 1000 / 1000 -790 / 210 360 / 360 Weight last 48 hrs Weight 43.091 kg Weight 42.32 kg Weight 58.967 kg Physical Exam 2 Const: COMMON NORMALS: no acute distress and patient oriented x3 Resp: COMMON NORMALS: normal respiratory effort, No retractions and No use of accessory muscles AUSCULTATION: crackles and wheezes Cardio: COMMON NORMALS: regular rate, regular rhythm, S1 normal heart sound present and S2 normal heart sound present RATE: regular rate RHYTHM: r egular rhythm HEART SOUNDS: S1 normal heart sound present and S2 normal heart sound present GI: COMMON NORMALS: Normal to inspection, nondistended, normoactive bowel sounds present and non-tender Extremity: COMMON NORMALS: no pedal edema Neuro: COMMON NORMALS: patient oriented x3, CN's II-XII intact bilaterally and moves all extremities Psych: COMMON NORMALS: mental status grossly normal Urinary Catheter Management: Mari: Cath Placed During This Visit: yes Reason for Continuing Indwelling Catheter: Required Immobilization for Trauma or Surgery or Anesthesia Urinary Catheter Date of Insertion: 05/23/25 Urinary Catheter Time of Insertion: 22:10 Data 05/24/25 04:43 05/24/25 04:43 A&P Assessment and plan 1. Closed pelvic fracture: 2. Fracture of anterior column of acetabulum: 3. Sacral fracture: 4. Fever: 5. Chronic anemia: Plan: 75-year-old lady with past medical history of rheumatoid arthritis and several joint deformities suffered a mechanical fall at home earlier today. Dizziness -Will check orthostatic vitals -Cardiac echo -Carotid artery ultrasound -Telemetry monitoring - troponin, ekg Acute on chronic anemia -Hemoglobin 7.9 -Iron studies are not suggestive of iron deficiency -Could be anemia of chronic disease, MCV 78 -Monitor hemoglobin NSTEMI - Baseline 104 - No chest pain complaints - EKG no acute ST-T wave changes - Cardiac echo - Will hold off on anticoagulant therapy given patient's acute on chronic anemia - Aspirin, atorvastatin Smoker, cough, possible history of COPD Pneumonia - CT of the chest CT/CT chest wo con [id number] IMPRESSION: 1. A total of 5 subcentimeter nonspecific nodular densities identified in the RIGHT lung as detailed above. One subcentimeter nodule also seen in the lingula. Lung metastasis not excluded but these may also be of benign etiology. 2. Consolidation and atelectasis in the posterior basal segment of the RIGHT lower lobe. Dependent change and mild atelectasis in the posterior LEFT lower lobe. 3. Pulmonary hyperinflation and emphysematous changes noted. 4. No significant lymphadenopathy in the chest. Plan - Continue Rocephin, Zithromycin - Monitor respiratory status closely Mechanical fall CT of the abdomen and pelvis shows an anterior acetabular fracture on the right side, right pubic symphyseal fracture and an acute right sacral fracture with trace hematoma surrounding. Orthopedic service has been consulted from the emergency room. -Medical management -Pain control with as needed morphine 2 mg every 4 hours as needed. -Add bowel regimen with lactulose 10 g p.o. daily as needed. -PT OT DVT ppx: Scd given anemia, hematomas on CT Full code Dispo: patient refuses placement to SNF for rehab, will prefer to return home at discharge PDMP PDMP Reviewed: Not Reviewed Attestations 2 Medical Necessity Statement*: Patient requires hospitalization for acute on chronic anemia, NSTEMI, pneumonia Diagnoses Closed pelvic fracture S32.9XXA Fracture of anterior column of acetabulum S32.433A Sacral fracture S32.10XA Fever R50.9 Chronic anemia D64.9
--- NOTE | 2025-05-24 13:26 | ECG_ITS ---
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 Measurements Intervals [place] Rate: 65 P: 77 LA: 161 QRS: 49 QRSD: 90 T: 64 QT: 402 QTc: 420 Interpretive Statements SINUS RHYTHM WITH SINUS ARRHYTHMIA Compared to ECG 05/24/2025 11:26:58 No significant changes Electronically Signed On 05-24-2025 15:27:54 CDT by Popeye Richter M.D. [email or web address] [id number]
[2025-05-24] MEDS: AZITHROMYCIN ADD-Vantage 500 MG in 0.9% NaCl ADD-Vantage 250 ML 250 MG IV (14:07)
[2025-05-24] MEDS: pantoprazole 40 mg SDV IVP (14:08)
--- NOTE | 2025-05-24 16:50 | ECG_ITS ---
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 Measurements Intervals [place] Rate: 72 P: 81 NC: 165 QRS: 48 QRSD: 85 T: 56 QT: 398 QTc: 437 Interpretive Statements SINUS RHYTHM WITH OCCASIONAL SUPRAVENTRICULAR PREMATURE COMPLEXES Compared to ECG 05/24/2025 13:26:13 Sinus arrhythmia no longer present Electronically Signed On 05-29-2025 16:53:50 CDT by Popeye Richter M.D. [id number]
[2025-05-24 17:32] LABS: Troponin 5 6HR Delta -2.4 ng/L (0-12)
[2025-05-24 17:33] LABS: Troponin 5 6HR 101.6 ng/L (0-10)
[2025-05-24] MEDS: cefTRIAXone 1,000 mg SDV 1000 MG IVP (21:36)
[2025-05-25] VITALS (10 sets, daily range): BP systolic 132–170; BP diastolic 65–77; PULSE 65–79; RESP 15–18; TEMP 36.4–36.9; O2SAT 90–96
[2025-05-25] MEDS: pantoprazole 40 mg SDV IVP (01:17)
[2025-05-25 04:09] LABS: Hematocrit 23.3 % (36-47); Hemoglobin 6.90 g/dL (11.27-16.99); Mean Corpuscular HGB Conc 29.6 g/dL (30-55); Mean Corpuscular Hemoglobin 23.4 pg (27-33); Mean Corpuscular Volume 79.0 fl (85-98); Nucleated Red Blood Cells % 0 %; Platelet Count 295 10^3/cmm (157-399); Red Blood Count 2.95 10^6/uL (3.85-5.65); White Blood Count 6.13 10^3/uL (3.29-11.43)
[2025-05-25 04:33] LABS: Alanine Aminotransferase 28 U/L (0-33); Albumin Level 2.9 g/dL (3.5-5.2); Alkaline Phosphatase 117 U/L (35-105); Anion Gap 14.4 (5-19); Aspartate Amino Transferase 29 U/L (0-32); Blood Urea Nitrogen 8 mg/dL (8-23); Calcium 8.0 mg/dL (8.5-10.5); Carbon Dioxide 19 mmol/L (22-29); Chloride 108 mmol/L (98-107); Creatinine Clr Calc Pharmacy 46.0647; Globulin 3.0 g/dL (1.3-4.6); Glucose 82 mg/dL (65-115); Magnesium 1.8 mg/dL (1.7-2.3); Osmolality Calculated 283 mOsm/kg (285-295); Potassium 3.4 mmol/L (3.5-5.1); Sodium 138 mmol/L (136-145); Total Protein 5.9 g/dL (6.6-8.7)
[2025-05-25] MEDS: oxyCODONE-APAP 5-325 mg Tablet 1 TAB PO (06:44)
[2025-05-25] MEDS: potassium phosphate (mEq K) 40 MEQ in sodium chloride 0.9% (100 ml) 100 ML 27.25 MEQ IV (09:39)
--- NOTE | 2025-05-25 12:24 | PC.CHAP ---
Pastoral Care Encounter/Spiritual Assessment Type of Contact [x] Declined resources representative visit [] Patient/Family/Request visit [] Outpatient visit [] Follow-up visit [] Physician referral [] Code/Alert [x] Routine visit [] Staff referral [] Actively dying [] Patient sleeping [] Family support [] [] Out of room [] Palliative care [] [] Receiving care in room [] Pre-surgical visit [] Trauma [] Long length of stay [] ICU visit [] Other: Relational/Emotional Strength [] Patient feels connected with others/family/visitors/staff [] Distress [] Loneliness/isolation [] Abandonment Spirituality of Patient [] Person of Micki [] Attends Sabianist of their Micki [] Believes in Prayer [] Reads Bible or Spiritism materials [] There are Spiritual issues to be addressed Photographic Process Attendant Interventions [] Prayer [] Active listening [] Non-anxious presence [] Spiritual/emotional support [] Crisis/trauma care [] Spiritual counseling [] Bereavement support [] Provided bereavement packet [] Provided Bible/devotional materials [] Provided toy/stuffed animal, coloring book to patient or family member [] Provided Communion [] Anointing/[place] [] Salvation [] Completed spiritual assessment [] Other: Impact on Illness or Injury [] Angry [] Fearful [] Anxious [] Often cries [] Exhaustion [] Unable to work [] Unable to attend religious [] Unable to walk/stand [] Unable to read [] Unable to drive [] Unable to eat/drink [] Unable to sleep [] Unable to be with family [] Patient intubated [] Other: Summary Time spent with patient
[2025-05-25 13:41] LABS: Vitamin B12 328 pg/mL (232-1245)
--- NOTE | 2025-05-25 16:07 | P.DS_ITS ---
Discharge Providers Date of Admission: 05/23/25 20:58 Date of Discharge: May 25, 2025 Attending Provider at Admission: Lalito Fry MD Attending Provider at Discharge: Bj Wells MD Primary Care Provider: NATHAN Hudson Diagnoses at Discharge Discharge Diagnosis 1. Multiple closed fractures of pelvis without disruption of pelvic ring, initial encounter: 2. Fracture of anterior column of acetabulum: 3. Sacral fracture: 4. Fever: 5. Chronic anemia: Reason for Visit Reason for Visit: heat exhaustion Hospital Course Hospital Course This is a 75-year-old female with a past medical history of COPD, smoker, rheumatoid arthritis, who presents [facility] for a fall Patient was admitted to [facility] for mechanical fall CT/CT abdomen pelvis wo con [id number] IMPRESSION: 1. No definitive evidence of visceral injury in the abdomen or pelvis. 2. Acute appearing right pubic symphyseal and anterior acetabular fractures with trace adjacent hematoma. 3. Probable acute right sacral fracture with trace adjacent hematoma. 4. Chronic appearing fractures of T12, L1, and L3. Consider MR if acute fracture is suspected. 5. Age-indeterminate right lateral 8th rib fracture. Correlate with - Patient received inpatient physical therapy - PT OT - Orthopedic service consulted, recommended medical management - Patient will be discharged with hydrocodone to be used sparingly for pain cont rol, do not drive or operate heavy machinery or drink while taking medication - Avoid NSAIDs - Follow-up with orthopedic service as outpatient For acute on chronic anemia - Hemoglobin down to 6.9 requiring 1 unit PRBC - I have strongly recommended for patient to spend another night in the hospital, to monitor hemoglobin, PT OT, monitor her vitals, monitor cardiac status - Patient's history is complicated with dizziness, NSTEMI, fall - However patient declines further inpatient stay - She understands morbidity and mortality issues with acute anemia - However she declines further hospital admission, in fact she declined a unit of blood however it took multiple efforts of convincing her to receive a unit of blood - Nonetheless I am going to have her follow-up with hematology as outpatient - Her reticulocyte count is 1.3, with hemoglobin 6.9, iron 300, ferritin 204, folate 15, B12 328 - This is indicated of more of a bone marrow pathology such as myelodysplastic syndrome causing acute on chronic anemia - She will likely need a bone marrow biopsy as outpatient - Will have her follow-up with Dr. Pérez as outpatient - But she might require an EGD and colonoscopy, I will discharge her on Protonix, Carafate, follow up with general surgery For patient's dizziness - Cardiac echo CONCLUSIONS LV systolic function is normal with EF of 60-65% Trace mitral regurgitation Moderate aortic stenosis Mild tricuspid regurgitation. Trace pulmonic regurgitation -Carotid artery ultrasound US/CV carotid duplex BI* [id number] IMPRESSION: No sign of hemodynamically significant carotid or vertebral artery stenosis. -Orthostatic vitals relatively reasonable - Dizziness likely multifactorial from acute on chronic anemia - Patient was advised to ambulate with care - Discussed to change position with care - Discussed morbidity and mortality associate with falls - Follow-up with the primary care For patient's NSTEMI - No chest pain complaints - Baseline troponin 104, 6-hour troponin 101.6 - No acute ST-T wave changes - Cardiac echo as above - Patient was medically managed - Discharged on aspirin, statin - Follow-up with cardiology as outpatient Pancreatic lesion 6. Questionable vague low-density lesion in the head of the pancreas likely related to adjacent duodenum though not well assessed on noncontrast imaging. Consider pancreatic protocol CT or MR as indicated. - Follow-up with Dr. Pérez Physical Exam Const: COMMON NORMALS: no acute distress and patient oriented x3 Resp: COMMON NORMALS: normal respiratory effort, No retractions, No use of accessory muscles and clear to auscultation bilaterally AUSCULTATION: clear to auscultation bilaterally Cardio: COMMON NORMALS: regular rate, regular rhythm, S1 normal heart sound present and S2 normal heart sound present RATE: regular rate RHYTHM: regular rhythm HEART SOUNDS: S1 normal heart sound present and S2 normal heart sound present GI: COMMON NORMALS: Normal to inspection, nondistended, normoactive bowel sounds present and non-tender Extremity: COMMON NORMALS: no pedal edema Neuro: COMMON NORMALS: patient oriented x3 Psych: COMMON NORMALS: mental status grossly normal Urinary Catheter Management: Mari: Cath Placed During This Visit: yes Reason for Continuing Indwelling Catheter: Required Immobilization for Trauma or Surgery or Anesthesia Urinary Catheter Date of Insertion: 05/23/25 Urinary Catheter Time of Insertion: 22:10 Discharge Data Studies Completed and Pending Completed Studies During Hospitalization Category Date Time Status CT abdomen pelvis wo con [id number] Stat Cat Scan 05/23/25 19:[address] chest wo con [id number] Routine Cat Scan 05/24/25 09:51 Completed CV carotid duplex BI* [id number] Routine Ultrasound 05/24/25 09:51 Completed CV. echo complete* [id number] Routine Ultrasound 05/24/25 09:51 Completed Pending at discharge Category Date Time Status Complete Blood Count w/Auto AM LABS Lab 05/26/25 04:00 Ordered Comprehensive Metabolic Panel AM LABS Lab 05/26/25 04:00 Ordered Magnesium AM LABS Lab 05/26/25 04:00 Ordered Phosphorus AM LABS Lab 05/26/25 04:00 Ordered Radiology Impressions Abdomen/Pelvis CT 05/23/25 19:35 IMPRESSION: 1. No definitive evidence of visceral injury in the abdomen or pelvis. 2. Acute appearing right pubic symphyseal and anterior acetabular fractures with trace adjacent hematoma. 3. Probable acute right sacral fracture with trace adjacent hematoma. 4. Chronic appearing fractures of T12, L1, and L3. Consider MR if acute fracture is suspected. 5. Age-indeterminate right lateral 8th rib fracture. Correlate with physical exam. 6. Questionable vague low-density lesion in the head of the pancreas likely related to adjacent duodenum though not well assessed on noncontrast imaging. Consider pancreatic protocol CT or MR as indicated. Carotid Doppler Study 05/24/25 09:51 IMPRESSION: No sign of hemodynamically significant carotid or vertebral artery stenosis. REFERENCES: SRU CRITERIA. The degree of internal carotid artery stenosis is based on criteria defined by the Society of Radiologists in Ultrasound (SRU). Normal is no stenosis. Mild is less than 50% stenosis. Moderate is 50-69% stenosis. Severe is greater than 69% stenosis to near occlusion. Near occlusion is a markedly narrowed lumen. Total occlusion is no detectable patent lumen. Reference: Tatum Vázquez, et al. Carotid Artery Stenosis: Odell-Scale and Doppler US Diagnosis-Society of Radiologists in Ultrasound Consensus Conference. Radiology 2003; 229:340-346. Chest CT 05/24/25 09:51 IMPRESSION: 1. A total of 5 subcentimeter nonspecific nodular densities identified in the RIGHT lung as detailed above. One subcentimeter nodule also seen in the lingula. Lung metastasis not excluded but these may also be of benign etiology. 2. Consolidation and atelectasis in the posterior basal segment of the RIGHT lower lobe. Dependent change and mild atelectasis in the posterior LEFT lower lobe. 3. Pulmonary hyperinflation and emphysematous changes noted. 4. No significant lymphadenopathy in the chest. Laboratory Results WBC 6.13 10^3/uL (3.29-11.43) 05/25/25 03:57 RBC 2.95 10^6/uL (3.85-5.65) L 05/25/25 03:57 Hgb 6.90 g/dL (11.27-16.99) L 05/25/25 03:57 Hct 23.3 % (36-47) L 05/25/25 03:57 MCV 79.0 fl (85-98) L 05/25/25 03:57 MCH 23.4 pg (27-33) L 05/25/25 03:57 MCHC 29.6 g/dL (30-55) L 05/25/25 03:57 RDW 21.3 % (12.1-15.1) H 05/25/25 03:57 Plt Count 295 10^3/cmm (157-399) 05/25/25 03:57 MPV 8.6 fL (7.4-10.4) 05/25/25 03:57 Neut % (Auto) 76.8 % 05/25/25 03:57 Lymph % (Auto) 15.0 % 05/25/25 03:57 Cannon % (Auto) 6.5 % 05/25/25 03:57 Eos % (Auto) 1.1 % 05/25/25 03:57 Baso % (Auto) 0.3 % 05/25/25 03:57 Reticulocyte % (Auto) 1.3 % (0.5-2.0) 05/25/25 03:57 Neut # (Auto) 4.70 10^3/uL (1.8-7.7) 05/25/25 03:57 Lymph # (Auto) 0.9 10^3/uL (0.8-4.8) 05/25/25 03:57 Cannon # (Auto) 0.4 10^3/uL (0.2-0.9) 05/25/25 03:57 Eos # (Auto) 0.1 10^3/uL (0.0-0.8) 05/25/25 03:57 Baso # (Auto) 0.0 10^3/uL (0.0-0.1) 05/25/25 03:57 Nucleated RBC % (auto) 0 % 05/25/25 03:57 Nucleated RBCs # 0.0 /100WBC 05/25/25 03:57 Sodium 138 mmol/L (136-145) 05/25/25 03:57 Potassium 3.4 mmol/L (3.5-5.1) L 05/25/25 03:57 Chloride 108 mmol/L (98-107) H 05/25/25 03:57 Carbon Dioxide 19 mmol/L (22-29) L 05/25/25 03:57 Anion Gap 14.4 (5-19) 05/25/25 03:57 BUN 8 mg/dL (8-23) 05/25/25 03:57 Creatinine 0.4 mg/dL (0.5-0.9) L 05/25/25 03:57 GFR Calculation Not Reportable 05/25/25 03:57 Glucose 82 mg/dL (65-115) 05/25/25 03:57 Estimat Average Glucose 111 05/23/25 18:36 Hemoglobin A1c 5.5 % (4.0-6.0) 05/23/25 18:36 Calculated Osmolality 283 mOsm/kg (285-295) L 05/25/25 03:57 Lactic Acid 2.4 mmol/L (0.5-2.2) H 05/23/25 18:50 Lactic Acid (Sepsis) 1.1 mmol/L (0.5-2.2) 05/23/25 21:56 Calcium 8.0 mg/dL (8.5-10.5) L 05/25/25 03:57 Phosphorus 2.2 mg/dL (2.5-4.5) L 05/25/25 03:57 Magnesium 1.8 mg/dL (1.7-2.3) 05/25/25 03:57 Iron 300 ug/dL (37-145) H 05/24/25 04:43 TIBC 299 mcg/dl 05/23/25 18:36 % Saturation 13.7 % (20-50) L 05/23/25 18:36 Unsat Iron Binding 258 ug/dL (112-347) 05/23/25 18:36 Ferritin 204 ng/mL (15-150) H 05/24/25 04:43 Total Bilirubin 0.2 mg/dL (0.15-1.2) 05/25/25 03:57 AST 29 U/L (0-32) 05/25/25 03:57 ALT 28 U/L (0-33) 05/25/25 03:57 Alkaline Phosphatase 117 U/L (35-105) H 05/25/25 03:57 Creatine Kinase 92 U/L (26-192) 05/23/25 18:50 Troponin T Baseline 104 ng/L (0-10) H* 05/24/25 10:15 Troponin T 120 Minute 101.9 ng/L (0-10) H 05/24/25 12:11 Delta Troponin T -2.1 ABS# (0-10) L 05/24/25 12:11 Troponin T Hi Sens 6Hr 101.6 ng/L (0-10) H 05/24/25 16:44 Troponin T Hi Sens 6Hr Delta -2.4 ng/L (0-12) L 05/24/25 16:44 C-Reactive Protein 30.0 mg/L (0.0-4.9) H 05/24/25 04:43 Total Protein 5.9 g/dL (6.6-8.7) L 05/25/25 03:57 Albumin 2.9 g/dL (3.5-5.2) L 05/25/25 03:57 Globulin 3.0 g/dL (1.3-4.6) 05/25/25 03:57 Triglycerides 64 mg/dL (0-150) 05/24/25 04:43 Cholesterol 94 mg/dL (0-200) 05/24/25 04:43 LDL Cholesterol, Calc 45 mg/dL (50-129) L 05/24/25 04:43 HDL Cholesterol 36 mg/dL (60-100) L 05/24/25 04:43 LDL/HDL Ratio 1.25 RATIO (0.00-3.22) 05/24/25 04:43 Cholesterol/HDL Ratio 2.61 mg/dL (0.0-4.40) 05/24/25 04:43 Vitamin B12 328 pg/mL (232-1245) 05/25/25 03:57 Folate 15.0 ng/mL (4.8-37.3) 05/25/25 03:57 Procalcitonin 31.81 ng/mL (0-0.5) H 05/24/25 04:43 TSH 3.55 uIU/mL (0.27-4.20) 05/23/25 18:36 Urine Color Yellow (Yellow) 05/23/25 20:00 Urine Appearance Clear (CLEAR) 05/23/25 20:00 Urine pH 5.5 (5-7) 05/23/25 20:00 Ur Specific Drexel 1.013 (1.005-1.030) 05/23/25 20:00 Urine Protein Trace (Negative) A 05/23/25 20:00 Urine Glucose (UA) Negative (Normal) 05/23/25 20:00 Urine Ketones Negative (Negative) 05/23/25 20:00 Urine Blood Negative (Negative) 05/23/25 20:00 Urine Nitrate Negative (Negative) 05/23/25 20:00 Urine Bilirubin Negative (Negative) 05/23/25 20:00 Urine Urobilinogen 0.2 mg/dL (Negative) 05/23/25 20:00 Ur Leukocyte Esterase Trace (Negative) A 05/23/25 20:00 Urine RBC 0-2 /hpf (0-2) 05/23/25 20:00 Urine WBC 0-5 /hpf (0-5) 05/23/25 20:00 Ur Squamous Epith Cells 0-5 /hpf (0-5) 05/23/25 20:00 Amorphous Sediment Not Reportable 05/23/25 20:00 Urine Bacteria None seen /hpf (NONE) 05/23/25 20:00 Hyaline Casts 4.95 /lpf 05/23/25 20:00 Urine Opiates Screen Negative ng/mL (Negative) 05/23/25 20:00 Ur Barbiturates Screen Negative ng/mL (Negative) 05/23/25 20:00 Ur Phencyclidine Scrn Negative ng/mL (Negative) 05/23/25 20:00 Ur Amphetamines Screen Negative ng/mL (Negative) 05/23/25 20:00 U Benzodiazepines Scrn Negative ng/mL (Negative) 05/23/25 20:00 Urine Cocaine Screen Negative ng/mL (Negative) 05/23/25 20:00 U Marijuana (THC) Screen Negative ng/mL (Negative) 05/23/25 20:00 Blood Type O Positive 05/25/25 09:15 Rho(D) Type Rh positive 05/25/25 09:15 Antibody Screen Negative 05/25/25 09:15 Crossmatch See Detail 05/25/25 09:15 Vitals Last Vital Signs Temp 98.0 F 05/25/25 15:57 Pulse 65 05/25/25 15:57 Resp 18 05/25/25 15:57 BP 150/76 05/25/25 15:57 Pulse Ox 91 05/25/25 15:57 O2 Del Method Nasal Cannula 05/25/25 15:57 O2 Flow Rate 2 05/24/25 05:45 Discharge Plan Discharge Patient Disposition: Home Condition: Stable Prescriptions: New hydrocodone-acetaminophen 5-325 mg tablet 1 tab PO BID PRN (Reason: pain) 5 Days Qty: 10 0RF atorvastatin 40 mg Tablet 40 mg PO BEDTIME 30 Days Qty: 30 0RF sucralfate 1 gram Tablet 1 g PO Q12H 30 Days Qty: 60 0RF pantoprazole 40 mg Tablet,Delayed Release (Dr/Ec) 40 mg PO BID 30 Days Qty: 60 0RF fluticasone propion-salmeterol [Advair Diskus] 250-50 mcg/dose blister with device 1 inh inhalation BID Qty: 60 0RF multivitamin Tablet 1 tab PO DAILY 30 Days Qty: 30 0RF docusate sodium 100 mg Capsule 100 mg PO BID 30 Days Qty: 60 0RF aspirin 81 mg Tablet,Delayed Release (Dr/Ec) 81 mg PO DAILY 30 Days Qty: 30 0RF albuterol sulfate [Ventolin HFA] 90 mcg/actuation HFA aerosol inhaler 1 inh inhalation Q6H PRN (Reason: shortness of breath or wheezing) Qty: 8.5 0RF amoxicillin-pot clavulanate 875-125 mg tablet 1 tab PO BID 5 Days Qty: 10 0RF Discontinued acetaminophen 500 mg capsule 500 mg PO TID PRN (Reason: Pain, Mild) 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 Moraes's clinic of the need for a follow-up appointment to be scheduled. If you have not heard from them within the next 2 business days, please call them directly. Polly Singleton FNP-C [Primary Care Provider, Family Practice] - 05/30/25 3:40 pm Bridgett Galdamez FNP [Nurse Practitioner, Cardiology] - 1 week Referral Note: We have notified [facility] of the need for a follow-up appointment to be scheduled. If you have not heard from them within the next 2 business days, please call them directly. Giovanny Pérez MD [Hospitalist, Oncology] - 4-7 days Referral Note: We have notified Dr. Pérez's clinic of the need for a follow- up appointment to be scheduled. If you have not heard from them within the next 2 business days, please call them directly. Regino Larry DO [Physician, Orthopedics] - 2 weeks Austin Pace MD [Physician, General Surgery] - 1 week Discharge Diet: Cardiac Discharge Activity: Resume usual activity Patient Instructions: Opioid Safety, Patient Portal & Ariel Instructions Activity Restrictions/Additional Instructions: Weight-bear as tolerated bilateral lower extremities Follow-up orthopedic clinic in 2 weeks - Please have your primary care provider recheck your hemoglobin in 1 week - Please avoid NSAIDs such as ibuprofen or naproxen - If you feel weak or lightheaded please come to the emergency room - Please follow-up with orthopedic service - Please take Protonix and Carafate as prescribed - Please take antibiotics as prescribed - If you have chest pain please go to the emergency room - Please stop smoking - If you have a fall go to the emergency room - For your pancreatic lesion please follow-up with Dr. Pérez - For your pulmonary nodules, follow-up with pulmonary, follow-up with Dr. Pérez - Please use hydrocodone sparingly for pain, do not drive or operate heavy machinery or drink while taking medication Discharge Attestations Time Spent in Discharge Care*: greater than 30 min Quality Metrics Clinical Quality Measures [ No reported AMI, CVA or VTE this stay] Coding Level of Care Code 12615 Total time (in minutes) for Discharge: 45 Diagnoses Multiple closed fractures of pelvis without disruption of pelvic ring, initial encounter S32.82XA Encounter type: initial encounter Fracture alignment: without disruption of pelvic ring Pelvic bone location: multiple parts Fracture of anterior column of acetabulum S32.433A Sacral fracture S32.10XA Fever R50.9 Chronic anemia D64.9
== END 2025-05-25 16:55 | disposition home or self-care (01) ==
LOC: ER 20:41 → MEDSURG 21:59
PROVIDERS: Student in an Organized Health Care Education/Training Program; Admitting Provider Student in an Organized Health Care Education/Training Program; Emergency Provider Emergency Medicine; PCP Nurse Practitioner; Visit Provider Family Medicine
DX: S32.82XA Multiple fractures of pelvis without disruption of pelvic ring, initial encounter for closed fracture (principal); S32.43 Fracture of anterior column [iliopubic] of acetabulum; S32.10XA Unspecified fracture of sacrum, initial encounter for closed fracture; W18.30XA Fall on same level, unspecified, initial encounter; R50.9 Fever, unspecified; D64.9 Anemia, unspecified; J44.9 Chronic obstructive pulmonary disease, unspecified; M06.9 Rheumatoid arthritis, unspecified; M19.90 Unspecified osteoarthritis, unspecified site; F17.200 Nicotine dependence, unspecified, uncomplicated
CPT/HCPCS: 36415; 36430; 51702; 71250; 74176; 80053; 80061; 80306; 81001; 82550; 82607; 82728; 82746; 83036; 83540; 83550; 83605; 83735; 84100; 84145; 84443; 84484; 85025; 85045; 86140; 86850; 86900; 86920; 93005; 93306; 93880; 94664; 96374; 96375; 97110; 97116; 97162; 97165; 97530; 99285; G0378; J0456; J0696; J1171; J1756; J2405; J2470; J7030; J7050; J9999; P9016

== ENCOUNTER → 2025-05-31 11:00 | Outpatient (BNVA) | payer MEDICARE, MEDICAID, SELFPAY | PROVIDERS: PCP Nurse Practitioner Family; Visit Provider Nurse Practitioner Family | DX: D64.9 Anemia, unspecified (principal) | CPT/HCPCS: 80053; 85025 ==

== ENCOUNTER 2025-06-03 07:47 | Oncology outpatient (recurring) (ONCR) | payer MEDICARE, MEDICAID, SELFPAY | END 2025-06-13 23:59 | disposition home or self-care (01) | PROVIDERS: PCP Nurse Practitioner Family; Visit Provider Internal Medicine Medical Oncology | DX: D64.9 Anemia, unspecified (principal); R03.0 Elevated blood-pressure reading, without diagnosis of hypertension; M06.9 Rheumatoid arthritis, unspecified; Z87.891 Personal history of nicotine dependence; Z79.899 Other long term (current) drug therapy | CPT/HCPCS: 99205 ==

== ENCOUNTER → 2025-06-04 08:22 | Outpatient (BNVA) | payer MEDICARE, MEDICAID, SELFPAY | PROVIDERS: PCP Nurse Practitioner Family; Visit Provider Orthopaedic Surgery | DX: S32.82XA Multiple fractures of pelvis without disruption of pelvic ring, initial encounter for closed fracture (principal); X58.XXXA Exposure to other specified factors, initial encounter | CPT/HCPCS: 72100; 72190; 99213 ==

== ENCOUNTER → 2025-06-18 10:46 | Outpatient (BNVA) | payer MEDICARE, MEDICAID, SELFPAY | PROVIDERS: PCP Nurse Practitioner Family; Visit Provider Internal Medicine | DX: R79.89 Other specified abnormal findings of blood chemistry (principal); D64.9 Anemia, unspecified; Z79.82 Long term (current) use of aspirin; F17.200 Nicotine dependence, unspecified, uncomplicated; I25.2 Old myocardial infarction | CPT/HCPCS: 99204; 99213 ==

== ENCOUNTER → 2025-06-20 13:17 | Outpatient (BNVA) | payer MEDICARE, MEDICAID, SELFPAY | PROVIDERS: PCP Nurse Practitioner Family; Visit Provider Student in an Organized Health Care Education/Training Program | DX: K86.9 Disease of pancreas, unspecified (principal) | CPT/HCPCS: 99204 ==

== ENCOUNTER 2025-06-23 18:37 | Emergency (ER) | payer MEDICARE, MEDICAID, SELFPAY ==
[2025-06-23 18:49] VITALS: BP 171/86; PULSE 75; RESP 16; TEMP 36.8; O2SAT 96
--- NOTE | 2025-06-23 18:53 | CTR_ITS ---
PROCEDURE INFORMATION: Exam: CT Head Without Contrast Exam date and time: 06/23/2025 6:53 PM Age: 75 years old Clinical indication: Stroke-like symptoms; Dizziness/giddiness; Lt upper extremity and lt lower extremity weakness; Additional info: Dizziness with left upper and lower ext weakness. Last known well time of 1130 hours. TECHNIQUE: Imaging protocol: Computed tomography of the head without contrast. Radiation optimization: All CT scans at this facility use at least one of these dose optimization techniques: automated exposure control; mA and/or kV adjustment per patient size (includes targeted exams where dose is matched to clinical indication); or iterative reconstruction. Other technique: STROKE PROTOCOL was implemented. COMPARISON: US CV carotid duplex BI* [id number] 05/24/2025 3:48 PM RADIATION DOSE METRICS: Total DLP (mGy-cm): 887.48 FINDINGS: Brain: Moderate nonspecific white matter low attenuation which may be related to microvascular ischemic changes. No acute confluent lobar ischemic infarct. No acute intracranial hemorrhage. Cerebral ventricles: The ventricles and sulci are prominent in size compatible with moderate atrophy. Paranasal sinuses: No fluid levels. Mastoid air cells: Visualized mastoid air cells are well aerated. Bones: No acute calvarial fracture. Soft tissues: Visualized soft tissues are unremarkable. CT/CT head thrombolytic [id number] IMPRESSION: No acute intracranial abnormality. If symptoms persist, consider further evaluation with MRI, if there are no contraindications to obtaining a MRI scan. ASSESSMENT: ASPECTS ([place] Stroke Program Early CT Score) is 10.
--- NOTE | 2025-06-23 18:53 | CTR_ITS ---
PROCEDURE INFORMATION: Exam: CTA Head With Contrast, Arteriography Exam date and time: 06/23/2025 6:55 PM Age: 75 years old Clinical indication: Stroke-like symptoms; Dizziness/giddiness; Lt upper extremity and lt lower extremity weakness; Additional info: Symptoms of acute stroke TECHNIQUE: Imaging protocol: Computed tomographic angiography of the head with contrast. Exam focused on the arteries. 3D rendering (Not supervised by radiologist): MIP and/or 3D reconstructed images were created by the technologist. Radiation optimization: All CT scans at this facility use at least one of these dose optimization techniques: automated exposure control; mA and/or kV adjustment per patient size (includes targeted exams where dose is matched to clinical indication); or iterative reconstruction. Contrast material: OMNI 350; Contrast volume: 100 ml; Contrast route: INTRAVENOUS (IV); COMPARISON: CT head thrombolytic [id number] 06/23/2025 6:53 PM RADIATION DOSE METRICS: Total DLP (mGy-cm): 335.82 FINDINGS: ANTERIOR CIRCULATION: Right internal carotid artery: No significant stenosis or aneurysm is seen involving the petrous, cavernous, or supraclinoid right internal caroid artery. Right middle cerebral artery: No occlusion or significant stenosis. No aneurysm. Right anterior cerebral artery: No occlusion or significant stenosis. No aneurysm. Left internal carotid artery: No significant stenosis or aneurysm is seen involving the petrous, cavernous, or supraclinoid left internal caroid artery. Left middle cerebral artery: No occlusion or significant stenosis. No aneurysm. Left anterior cerebral artery: No occlusion or significant stenosis. No aneurysm. POSTERIOR CIRCULATION: Right vertebral artery: Intradural right vertebral artery demonstrates no occlusion or significant stenosis. No aneurysm. Left vertebral artery: Intradural left vertebral artery demonstrates no occlusion or significant stenosis. No aneurysm. Basilar artery: No occlusion or significant stenosis. 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 Right posterior cerebral artery: No occlusion or significant stenosis. No aneurysm. Left posterior cerebral artery: No occlusion or significant stenosis. No aneurysm. PROCEDURE INFORMATION: Exam: CTA Neck With Contrast Exam date and time: 06/23/2025 6:55 PM Age: 75 years old Clinical indication: Stroke-like symptoms; Dizziness/giddiness; Lt upper extremity and lt lower extremity weakness; Additional info: Symptoms of acute stroke TECHNIQUE: Imaging protocol: Computed tomographic angiography of the neck with contrast. Exam focused on the cervical segments of the vasculature. 3D rendering (Not supervised by radiologist): MIP and/or 3D reconstructed images were created by the technologist. Radiation optimization: All CT scans at this facility use at least one of these dose optimization techniques: automated exposure control; mA and/or kV adjustment per patient size (includes targeted exams where dose is matched to clinical indication); or iterative reconstruction. Contrast material: OMNI 350; Contrast volume: 100 ml; Contrast route: INTRAVENOUS (IV); COMPARISON: US CV carotid duplex BI* [id number] 05/24/2025 3:48 PM RADIATION DOSE METRICS: Total DLP (mGy-cm): 335.82 FINDINGS: Right common carotid artery: No stenosis. No dissection or occlusion. Right internal carotid artery: No significant stenosis seen by NASCET criteria. No dissection or occlusion. Right external carotid artery: No occlusion or stenosis of the origin. Left common carotid artery: No stenosis. No dissection or occlusion. Left internal carotid artery: No significant stenosis seen by NASCET criteria. No dissection or occlusion. Left external carotid artery: No occlusion or stenosis of the origin. Right vertebral artery: No cervical vertebral artery stenosis. No dissection or occlusion. Left vertebral artery: No cervical vertebral artery stenosis. No dissection or occlusion. Soft tissues: Emphysematous changes are noted involving both upper lungs. Right thyroid nodules/cysts. The thyroid gland would be better assessed with thyroid ultrasound if clinically warranted. Asymmetric appearance of the fossa of Rosenmuller with relative effacement of the right side. Underlying mucosal lesion cannot be excluded. Recommend correlation with direct visualization. Bones/joints: No acute bony abnormality. CT/CT angio headneck* [id number] IMPRESSION: 1. No intracranial large vessel arterial stenosis or occlusion. 2. 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 Recommend comparison to prior studies if available and follow-up imaging as clinically warranted. Recommend neurosurgical/neuro interventional consultation. IMPRESSION: 1. No significant cervical arterial stenosis or occlusion. 2. Asymmetric appearance of the fossa of Rosenmuller with relative effacement of the right side. Underlying mucosal lesion cannot be excluded. Recommend correlation with direct visualization. COMMENTS: Consistent with the [employer]'s Incidental Findings Committee white paper (J Am Say Radiol 2015): In patients aged 35 years and older with an incidental thyroid nodule equal to or greater than 1.[address], MRI or extrathyroidal US, further evaluation with dedicated thyroid US is recommended for patients with normal life expectancy and without comorbidities. For smaller nodules without suspicious features, no further evaluation or follow up is recommended. REFERENCES: NASCET CRITERIA. The degree of stenosis in the cervical segment of the internal carotid artery is based on NASCET criteria. Normal is no stenosis. Mild is less than 50% stenosis. Moderate is 50-69% stenosis. Severe is 70% to 99% stenosis. Total occlusion is no detectable patent lumen.
[2025-06-23] MEDS: iohexol 350 mg/mL 500 mL Btl (per mL) IV (18:59)
[2025-06-23 19:06] VITALS: BP 187/74; PULSE 73; RESP 18; O2SAT 98
[2025-06-23 19:36] VITALS: BP 164/83; PULSE 70; RESP 17; O2SAT 98
--- NOTE | 2025-06-23 19:49 | ED_ITS ---
HPI - Neuro Symptoms/Deficit 2 General: Chief Complaint: Neuro Symptoms/Deficit Stated Complaint: LT side weakness Happened around 12pm Time Seen by Provider: 06/23/25 19:08 History of Present Illness: Patient is a 75 year old female smoker presenting with acute onset left-sided numbness and weakness that began around noon today. Patient reports that just prior to the onset of symptoms, she experienced dizziness. Patient states 'my left side is ' and confirms inability to move her left arm and leg. Patient reports feeling 'a little bit swollen' when asked about swallowing difficulties. No visual disturbances reported. Patient denies prior history of stroke or hypertension. According to family member, patient was eating normally at 11:30 AM, then became dizzy around noon, followed by left-sided numbness. Patient has history of tailbone fracture from a fall in May, for which she was hospitalized for 2-3 nights. Patient is currently on aspirin as prescribed by Dr. Gibson following her previous hospitalization due to concerns about cardiac stress. Family reports patient has undiagnosed pancreatic issues with unexplained blood loss, possibly related to excessive ibuprofen use. Patient has been evaluated at a cancer center and is scheduled for pulmonology evaluation at a surgery center on Tuesday. Related Data Previous Rx's ?Medication ?Instructions ?Recorded aspirin 81 mg tablet,delayed 81 mg PO DAILY 30 days #3 0 tabs 05/25/25 release docusate sodium 100 mg capsule 100 mg PO BID 30 days # 60 caps 05/25/25 multivitamin 1 tab PO DAILY 30 days #30 t abs 05/25/25 hydrocodone 5 mg-acetaminophen 325 1 tab PO Q12H PRN p ain 30 days #60 06/03/25 mg tablet tabs mupirocin 2 % topical ointment 1 applic topical BID #2 2 grams 06/13/25 (Centany) albuterol sulfate 90 mcg/actuation 1 inh inhalation Q6 H PRN shortness 06/21/25 aerosol inhaler (Ventolin HFA) of breath or wheezing # 8.5 grams doxycycline hyclate 100 mg 100 mg PO BID 10 days #20 t abs 06/21/25 tablet,delayed release fluticasone 250 mcg-salmeterol 50 1 inh inhalation BID 30 days #60 ea 06/21/25 mcg/dose blistr powdr for inhalation (Advair Diskus) pantoprazole 40 mg tablet,delayed 40 mg PO BID 90 days #180 tabs 06/21/25 release sucralfate 1 gram tablet 1 g PO Q12H 90 days #180 tab s 06/21/25 clopidogrel 75 mg tablet (Plavix) 75 mg PO DAILY #30 t abs 06/23/25 Allergies Allergy/AdvReac Type Severity Reaction Status Date / Time sulfasalazine AdvReac Intermediate severe N/V Verified 06/21/25 10:28 Review of Systems 2 General: Reports: 10 or more systems reviewed and unremarkable except in HPI and below PFSH ED 2 PFSH: Medical History (Updated 06/23/25 @ 22:22 by César Lomax DO) Medication refill Mixed hyperlipidemia Skin abrasion Cellulitis of right breast Skin sore Erosive osteoarthritis of both hands Seropositive rheumatoid arthritis of multiple sites Osteoarthritis Joint pain Positive DAIANA (antinuclear antibody) High risk medication use Immunization counseling Rheumatoid arthritis with rheumatoid factor Surgical History History of tubal ligation Family History Brother Cancer Prostate Other Rheumatoid arthritis Denies family history of Diabetes Lupus CAD (coronary artery disease) Hyperlipidemia Chronic kidney disease (CKD) Lung disease Hypertension Stroke Social History Smoking and tobacco/nicotine status: current every day tobacco/nicotine user Second hand smoke exposure: No Alcohol intake: former Substance/Drug Use: never Caregiver/support person: No Lives independently: Yes Household members: none Housing: House Marital status: / Number of children: 3 service: No Current occupational status: retired Do you think of yourself as: Straight/Heterosexual Current gender identity: Female NIH stroke score 2 NIHSS: Level Of Consciousness - 1a: 0 Level Of Consciousness Questions - 1b: Both Correct Level Of Consciousness Commands - 1c: Both Correct Best Gaze - 2: Normal Visual Hughes - 3: No Visual Loss Facial Palsy - 4: N ormal Motor Arm Right - 5: No Drift Motor Arm Left - 5: Effort Against [place] Motor Leg Right - 6: No Drift Motor Leg Left - 6: Effort Against [place] Limb Ataxia - 7: Present In One Limb Sensory - 8: Mild To Moderate Loss Best Language - 9: No Aphasia Dysarthia - 10: Mild/Moderate Dysarthia Extinction And Inattention - 11: 0 Score: Total Score: 7 Physical Exam 2 Const: COMMON NORMALS: no acute distress, patient oriented x3, alert and well nourished HENMT: COMMON NORMALS: normocephalic HEAD & SCALP: normocephalic Eye: COMMON NORMALS: Equal, round and reactive pupils present, EOMs intact bilaterally and conjunctivae normal CONJUNCTIVA: Yes conjunctivae normal P UPIL: Yes Equal, round and reactive pupils present Neck/C-Spine: COMMON NORMALS: full ROM, no lymphadenopathy, supple, no meningeal signs, no JVD and Thyroid normal THYROID: Thyroid normal Resp: COMMON NORMALS: normal respiratory effort, No retractions, No use of accessory muscles, clear to auscultation bilaterally and percussion normal A USCULTATION: clear to auscultation bilaterally PERCUSSION: percussion normal Cardio: COMMON NORMALS: no JVD, regular rate and regular rhythm RATE: r egular rate RHYTHM: regular rhythm GI: COMMON NORMALS: Normal to inspection, nondistended, normoactive bowel sounds present, Soft to palpation, non-tender, No hepatosplenomegaly present, no masses and no bruits PALPATION: Yes Soft to palpation and Yes No hepatosplenomegaly present : COMMON NORMALS: Yes no CVA tenderness BLADDER/KIDNEY EXAM: Yes no CVA tenderness Back/Pelvis: COMMON NORMALS: no CVA tenderness Extremity: COMMON NORMALS: normal to inspection, full ROM, capillary refill normal, no joint enlargement, no clubbing, cyanosis or edema, no calf tenderness and no pedal edema Neuro: COMMON NORMALS: patient oriented x3 SENSORIUM/ORIENTATION: Yes alert MENINGEAL SIGNS: Yes no meningeal signs MOTOR EXAM: Other motor observations present (Left sided almost complete hemiparesis) Skin: COMMON NORMALS: no rashes or lesions noted, turgor normal and no jaundice GENERAL SKIN EXAM: no rashes or lesions noted and turgor normal Course 2 Vital Signs: Vital signs: Vital Signs Temperature 98.3 F 06/23/25 18:49 Pulse Rate 73 06/23/25 21:01 Respiratory Rate 16 06/23/25 21:01 Blood Pressure 165/88 06/23/25 21:01 Pulse Oximetry 96 06/23/25 21:01 Oxygen Delivery Me thod Room Air 06/23/25 21:01 MDM - Neuro Symptoms/Deficit Medical Decision Making 1. Acute Ischemic Stroke, likely involving right cerebral hemisphere - Presenting with classic left-sided hemiparesis and mild dysarthria - Time since symptom onset exceeds standard thrombolytic window (4.5 hours) - Plan: Urgent CT head and CTA to confirm diagnosis and evaluate for large vessel occlusion - Will not aggressively treat hypertension acutely to maintain cerebral perfusion - Neurology consultation requested 2. Hypertension, severe, likely contributing to stroke - Plan: Monitor closely without immediate aggressive treatment - Will initiate appropriate antihypertensive therapy after acute stroke management 3. History of recent trauma (tailbone fracture) - On aspirin therapy - Plan: Consider this in anticoagulation/antiplatelet decisions 4. Suspected pancreatic abnormality with unexplained blood loss - Plan: Will review prior records - Will coordinate with primary care and specialists for follow-up after acute stroke management Patient underwent a rather extensive workup here the initial CT scans were unrevealing but history and physical examination very consistent with an acute ischemic stroke. The patient had some improvement of her left-sided symptoms although certainly not back to normal. The patient was recommended to come in the hospital for further evaluation and stroke workup. The patient adamantly refused to come in the hospital despite strong recommendations from myself and the nursing staff. The patient is a DNR. The patient according to the daughter has been wanting to pass away for some time so she could go be with her late . The patient has what appears to be normal medical decision making capacity. The patient is repeatedly insistent on going home despite risk benefits being discussed with her. The patient was agreeable to starting Plavix in addition to her aspirin but not agreeable to consider smoking cessation. The patient is invited to come back at any time for admission and reevaluation otherwise she should follow-up with her primary care physician and again we strongly discouraged the patient from being discharged from the hospital. She will sign AMA form. Lab Data 06/23/25 18:47 06/23/25 18:[address] 06/23/25 18:53 IMPRESSION: No acute intracranial abnormality. If symptoms persist, consider further evaluation with MRI, if there are no contraindications to obtaining a MRI scan. ASSESSMENT: ASPECTS ([place] Stroke Program Early CT Score) is 10. ADDENDUM: 06/23/25 1914 ADDENDUM: THIS REPORT CONTAINS FINDINGS THAT MAY BE CRITICAL TO PATIENT CARE. The findings were verbally communicated via telephone conference with BRENNA LOMAX at 7:13 PM CDT on 06/23/2025. The findings were acknowledged and understood. Head/Neck CTA 06/23/25 18:53 IMPRESSION: 1. No intracranial large vessel arterial stenosis or occlusion. 2. 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 Recommend comparison to prior studies if available and follow-up imaging as clinically warranted. Recommend neurosurgical/neuro interventional consultation. IMPRESSION: 1. No significant cervical arterial stenosis or occlusion. 2. Asymmetric appearance of the fossa of Rosenmuller with relative effacement of the right side. Underlying mucosal lesion cannot be excluded. Recommend correlation with direct visualization. COMMENTS: Consistent with the [employer]'s Incidental Findings Committee white paper (J Am Say Radiol 2015): In patients aged 35 years and older with an incidental thyroid nodule equal to or greater than 1.[address], MRI or extrathyroidal US, further evaluation with dedicated thyroid US is recommended for patients with normal life expectancy and without comorbidities. For smaller nodules without suspicious features, no further evaluation or follow up is recommended. REFERENCES: NASCET CRITERIA. The degree of stenosis in the cervical segment of the internal carotid artery is based on NASCET criteria. Normal is no stenosis. Mild is less than 50% stenosis. Moderate is 50-69% stenosis. Severe is 70% to 99% stenosis. Total occlusion is no detectable patent lumen. ADDENDUM: 06/23/251947 ADDENDUM: THIS REPORT CONTAINS FINDINGS THAT MAY BE CRITICAL TO PATIENT CARE. The findings were verbally communicated via telephone conference with BRENNA LOMAX at 7:46 PM CDT on 06/23/2025. The findings were acknowledged and understood. Laboratory Results WBC 6.53 10^3/uL (3.29-11.43) 06/23/25 18:47 RBC 4.29 10^6/uL (3.85-5.65) 06/23/25 18:47 Hgb 11.10 g/dL (11.27-16.99) L 06/23/25 18:47 Hct 35.5 % (36-47) L 06/23/25 18:47 MCV 82.8 fl (85-98) L 06/23/25 18:47 MCH 25.9 pg (27-33) L 06/23/25 18: MCHC 31.3 g/dL (30-55) 06/23/25 18:47 RDW 20.3 % (12.1-15.1) H 06/23/25 18:47 Plt Count 385 10^3/cmm (157-399) 06/23/25 18: MPV 10.2 fL (7.4-10.4) 06/23/25 18:47 Neut % (Auto) 63.3 % 06/23/25 18:47 Lymph % (Auto) 19.8 % 06/23/25 18:47 [place] % (Auto) 7.0 % 06/23/25 18: Eos % (Auto) 8.9 % 06/23/25 18: Baso % (Auto) 0.8 % 06/23/25 18: Neut # (Auto) 4.14 10^3/uL (1.8-7.7) 06/23/25 18:47 Lymph # (Auto) 1.3 10^3/uL (0.8-4.8) 06/23/25 18:47 [place] # (Auto) 0.5 10^3/uL (0.2-0.9) 06/23/25 18: Eos # (Auto) 0.6 10^3/uL (0.0-0.8) 06/23/25 18: Baso # (Auto) 0.1 10^3/uL (0.0-0.1) 06/23/25 18: Nucleated RBC % (auto) 0 % 06/23/25 18: Nucleated RBCs # 0.0 /100WBC 06/23/25 18: PT 13.10 SECONDS (12.1-14.9) 06/23/25 18: INR 0.93 (0.8-1.2) 06/23/25 18: APTT 28.2 SECONDS (23.9-36.7) 06/23/25 18:47 Sodium 133 mmol/L (136-145) L 06/23/25 18: Potassium 3.8 mmol/L (3.5-5.1) 06/23/25 18:47 Chloride 97 mmol/L (98-107) L 06/23/25 18:47 Carbon Dioxide 26 mmol/L (22-29) 06/23/25 18:47 Anion Gap 13.8 (5-19) 06/23/25 18:47 BUN 14 mg/dL (8-23) 06/23/25 18:47 Creatinine 0.4 mg/dL (0.5-0.9) L 06/23/25 18:47 GFR Calculation Not Reportable 06/23/25 18:47 Glucose 103 mg/dL (65-115) 06/23/25 18:47 POC Glucose 108 mg/dL (70-110) 06/23/25 18:52 Calculated Osmolality 277 mOsm/kg (285-295) L 06/23/25 18:47 Calcium 9.5 mg/dL (8.5-10.5) 06/23/25 18:47 Total Bilirubin 0.2 mg/dL (0.15-1.2) 06/23/25 18:47 AST 63 U/L (0-32) H 06/23/25 18:47 ALT 101 U/L (0-33) H 06/23/25 18:47 Alkaline Phosphatase 613 U/L (35-105) H 06/23/25 18:47 Total Protein 7.5 g/dL (6.6-8.7) 06/23/25 18:47 Albumin 3.7 g/dL (3.5-5.2) 06/23/25 18:47 Globulin 3.8 g/dL (1.3-4.6) 06/23/25 18:47 Urine Color Yellow (Yellow) 06/23/25 19:10 Urine Appearance Clear (CLEAR) 06/23/25 19:10 Urine pH 7.5 (5-7) 06/23/25 19:10 Ur Specific [place] 1.039 (1.005-1.030) H 06/23/25 19:10 Urine Protein Trace (Negative) A 06/23/25 19:10 Urine Glucose (UA) Negative (Normal) 06/23/25 19:10 Urine Ketones Negative (Negative) 06/23/25 19:10 Urine Blood Negative (Negative) 06/23/25 19:10 Urine Nitrate Negative (Negative) 06/23/25 19:10 Urine Bilirubin Negative (Negative) 06/23/25 19:10 Urine Urobilinogen 0.2 mg/dL (Negative) 06/23/25 19:10 Ur Leukocyte Esterase Negative (Negative) 06/23/25 19:10 Urine RBC 0-2 /hpf (0-2) 06/23/25 19:10 Urine WBC 0-5 /hpf (0-5) 06/23/25 19:10 Ur Squamous Epith Cells 0-5 /hpf (0-5) 06/23/25 19:10 Amorphous Sediment Not Reportable 06/23/25 19:10 Urine Bacteria None seen /hpf (NONE) 06/23/25 19:10 Hyaline Casts 0-4 /lpf H 06/23/25 19:10 Urine Opiates Screen Positive ng/mL (Negative) H 06/23/25 19:10 Urine Opiates Screen Positive ng/mL (Negative) H 06/23/25 19:10 Ur Barbiturates Screen Negative ng/mL (Negative) 06/23/25 19:10 Ur Barbiturates Screen Negative ng/mL (Negative) 06/23/25 19:10 Ur Phencyclidine Scrn Negative ng/mL (Negative) 06/23/25 19:10 Ur Phencyclidine Scrn Negative ng/mL (Negative) 06/23/25 19:10 Ur Amphetamines Screen Negative ng/mL (Negative) 06/23/25 19:10 Ur Amphetamines Screen Negative ng/mL (Negative) 06/23/25 19:10 U Benzodiazepines Scrn Negative ng/mL (Negative) 06/23/25 19:10 U Benzodiazepines Scrn Negative ng/mL (Negative) 06/23/25 19:10 Urine Cocaine Screen Negative ng/mL (Negative) 06/23/25 19:10 Urine Cocaine Screen Negative ng/mL (Negative) 06/23/25 19:10 U Marijuana (THC) Screen Negative ng/mL (Negative) 06/23/25 19:10 U Marijuana (THC) Screen Negative ng/mL (Negative) 06/23/25 19:10 All radiology interpretation(s) finalized by discharge Discharge Plan Discharge Patient Disposition: Home Clinical Impression: Cerebrovascular accident, Basilar artery aneurysm Condition: Stable Prescriptions: New clopidogrel [Plavix] 75 mg tablet 75 mg PO DAILY Qty: 30 0RF No Action hydrocodone-acetaminophen 5-325 mg tablet 1 tab PO Q12H PRN (Reason: pain) 30 Days Qty: 60 0RF mupirocin [Centany] 2 % ointment 1 applic topical BID Qty: 22 1RF doxycycline hyclate 100 mg tablet,delayed release (DR/EC) 100 mg PO BID 10 Days Qty: 20 0RF pantoprazole 40 mg tablet,delayed release (DR/EC) 40 mg PO BID 90 Days Qty: 180 1RF sucralfate 1 gram tablet 1 g PO Q12H 90 Days Qty: 180 1RF fluticasone propion-salmeterol [Advair Diskus] 250-50 mcg/dose blister with device 1 inh inhalation BID 30 Days Qty: 60 5RF albuterol sulfate [Ventolin HFA] 90 mcg/actuation HFA aerosol inhaler 1 inh inhalation Q6H PRN (Reason: shortness of breath or wheezing) Qty: 8.5 5RF aspirin 81 mg Tablet,Delayed Release (Dr/Ec) 81 mg PO DAILY 30 Days Qty: 30 0RF docusate sodium 100 mg Capsule 100 mg PO BID 30 Days Qty: 60 0RF multivitamin Tablet 1 tab PO DAILY 30 Days Qty: 30 0RF Discharge Orders: Discharge ED (Routine); Ordered 06/23/25 Ordered By: César Lomax Referrals: MARIANNE Delacruz FNP [Primary Care Provider, Family Practice] Discharge Diet: Low Salt and Low Cholesterol Discharge Activity: Resume usual activity Patient Instructions: Opioid Safety, Pain Management, Patient Portal & Ariel Instructions Activity Restrictions/Additional Instructions: 1. Stop smoking. Take Rx as directed. 2. Follow up in clinic this week to discuss imaging and further management. 3. Return for new or worsening symptoms. Print Language: Chinese Coding Level of Care Code ED Engraving Supervisor for Lashanda Weston
[2025-06-23 20:09] LABS: Glucose Urine UA Negative (Normal); Nitrate Urine Negative (Negative)
[2025-06-23 20:11] LABS: Add Urine Microscopic? YES
[2025-06-23 20:17] LABS: PCP Screen Urine Negative (Negative)
[2025-06-23 20:18] LABS: Specific Gravity, Urine 1.039 (1.005-1.030)
[2025-06-23 20:21] VITALS: BP 158/79; PULSE 67; RESP 14; O2SAT 96
[2025-06-23 21:01] VITALS: BP 165/88; PULSE 73; RESP 16; O2SAT 96
--- NOTE | 2025-06-23 21:26 | ECG_ITS ---
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 Measurements Intervals [place] Rate: 66 P: 87 OR: 172 QRS: 59 QRSD: 87 T: 63 QT: 366 QTc: 385 Interpretive Statements SINUS RHYTHM Poor R wave progression Compared to ECG 05/24/2025 16:50:41 No significant changes Electronically Signed On 06-25-2025 08:14:01 CDT by Popeye Richter M.D. [email or web address]
[2025-06-23 21:32] LABS: Hematocrit 35.5 % (36-47); Hemoglobin 11.10 g/dL (11.27-16.99); Mean Corpuscular HGB Conc 31.3 g/dL (30-55); Mean Corpuscular Hemoglobin 25.9 pg (27-33); Mean Corpuscular Volume 82.8 fl (85-98); Nucleated Red Blood Cells % 0 %; Platelet Count 385 10^3/cmm (157-399); Red Blood Count 4.29 10^6/uL (3.85-5.65); White Blood Count 6.53 10^3/uL (3.29-11.43)
--- NOTE | 2025-06-23 21:35 | PC.NURSE ---
Pt states, I want to go home now. You need to get your butt in gear and get me out of here. Pt asked why she was wanting to go home and she states, I didn't want to come here in the first place and I am not staying. Dr Borden notified that pt does not want to stay. Provider in room with patient and has explained to patient that she has likely had a stroke and recommending her to stay for treatment. Pt refused. Pt and daughter verbalized understanding that she would be leaving AMA. Pt states she will not stop smoking, she is basically a DNR.
[2025-06-23 21:40] LABS: INR 0.93 (0.8-1.2); Prothrombin Time 13.10 SECONDS (12.1-14.9)
[2025-06-23 21:42] LABS: Partial Thromboplastin Time 28.2 SECONDS (23.9-36.7)
[2025-06-23 21:44] LABS: Alanine Aminotransferase 101 U/L (0-33); Albumin Level 3.7 g/dL (3.5-5.2); Alkaline Phosphatase 613 U/L (35-105); Anion Gap 13.8 (5-19); Aspartate Amino Transferase 63 U/L (0-32); Blood Urea Nitrogen 14 mg/dL (8-23); Calcium 9.5 mg/dL (8.5-10.5); Carbon Dioxide 26 mmol/L (22-29); Chloride 97 mmol/L (98-107); Creatinine Clr Calc Pharmacy 36.2264; Globulin 3.8 g/dL (1.3-4.6); Glucose 103 mg/dL (65-115); Osmolality Calculated 277 mOsm/kg (285-295); Potassium 3.8 mmol/L (3.5-5.1); Sodium 133 mmol/L (136-145); Total Protein 7.5 g/dL (6.6-8.7)
[2025-06-23 21:59] LABS: PCP Screen Urine Negative (Negative)
[2025-06-23 22:13] VITALS: BP 127/102; PULSE 71; O2SAT 95
== END 2025-06-23 22:16 | disposition home or self-care (01) ==
PROVIDERS: Emergency Provider Family Medicine; PCP Nurse Practitioner Family
DX: I63.9 Cerebral infarction, unspecified (principal); I72.5 Aneurysm of other precerebral arteries; Z79.82 Long term (current) use of aspirin; Z72.0 Tobacco use; E78.2 Mixed hyperlipidemia
CPT/HCPCS: 36415; 36416; 70450; 70496; 70498; 80053; 80306; 81001; 82962; 85025; 85610; 85730; 93005; 99285

== ENCOUNTER 2025-06-28 10:00 | Oncology outpatient (recurring) (ONCR) | payer MEDICARE, MEDICAID, SELFPAY ==
[2025-06-25 07:34] VITALS: PULSE 84; RESP 18; O2SAT 94
--- NOTE | 2025-06-28 10:00 | PETR_ITS ---
PROCEDURE INFORMATION: Exam: PET/CT Skull Base to Mid-thigh Exam date and time: 06/28/2025 11:15 AM Age: 75 years old Clinical indication: Abnormal findings; Total of 5 subcentimeter nonspecific nodular densities identified in the right lung as detailed above. One subcentimeter nodule also seen in the lingula. Lung metastasis not excluded but these May also be of benign etiology; Prior surgery; Surgery date: 6+ months; Surgery type: Tubal; Additional info: Abnormal findings of lung field LABS AND CLINICAL REPORTS: Glucose: 126 mg/dl Treatment strategy for malignancy (PET staging): Initial Staging (PI) TECHNIQUE: Imaging protocol: Following at least four-hour fasting and following the injection of radiopharmaceutical, low dose CT images were obtained. Then, PET images were obtained. Attenuation corrected images were constructed using the CT scan. Fused images of PET and CT were reviewed. The standardized uptake values (SUV) reported below are maximum values within a region of interest, expressed in gm/ml. Exam includes orbital meatal line to mid-thigh. SUV normalization method: BodyWeight Radiopharmaceutical: 9.81 mCi F-18 FDG (Fluorodeoxyglucose), IV. Time of imaging post radiopharmaceutical administration: 49 minutes Injection site: right ac COMPARISON: 1. CT chest wo con [id number] 05/24/2025 11:[address] abdomen pelvis wo con [id number] 05/23/2025 7:55 PM FINDINGS: Brain: Visualized brain has normal physiologic uptake. Pharynx: No abnormal uptake. Larynx: No abnormal uptake. Thyroid: FDG avid 7 mm right thyroid nodule shows SUV max 4.8 on axial image 58. Lungs, pleura and trachea: No abnormal uptake. Redemonstrated pulmonary emphysema and multiple subcentimeter non FDG avid nodules that are below size threshold for accurate FDG assessment, largest measuring up to 7 mm. Decreased small right pleural effusion and fvcri-[id number]-zbop-left basilar atelectasis. Left basilar calcified granuloma. Heart: Normal physiologic uptake. Mediastinal space: No abnormal uptake. Liver: No abnormal uptake. Gallbladder and biliary ducts: No abnormal uptake. Pancreas: No abnormal uptake. Spleen: No abnormal uptake. Adrenal glands: No abnormal uptake. Kidneys and ureters: Normal physiologic uptake. Stomach and bowel: No abnormal uptake. Moderate colonic stool burden with hyperdense stool that may be seen in the setting of constipation. Vasculature: No abnormal uptake. Moderate systemic atherosclerotic calcification without aortic aneurysm. Lymph nodes: Low-level uptake at nonenlarged mediastinal and bilateral hilar nodes. Calcified left hilar nodes in keeping with sequela of old granulomatous disease. Skeleton: Multiple subacute healing right rib fractures with callus formation and associated FDG uptake. Focal lower level FDG uptake at the anterolateral left 3rd rib without underlying CT abnormality also suspected to represent fracture. Multiple vertebral body compression deformities without associated FDG uptake, most severe at the T12 vertebral body. Subacute healing bilateral sacral ala fractures with healing sclerosis and low-level FDG uptake with morphology suggesting insufficiency fractures. Subacute healing bilateral superior and inferior pubic rami fractures as well as right parasymphyseal pubic fracture with healing sclerosis and callus formation as well as low-level FDG uptake. Degenerative change along the axial skeletal system, shoulders and elbows. Soft tissues: No abnormal uptake in the visualized head, neck, chest, abdomen, pelvis, and extremities. METRICS: Mediastinal blood pool: SUV mean 1.6 Liver uptake: SUV mean 2.0 PET/PET skull to thigh INIT [id number] IMPRESSION: 1. Multiple subcentimeter pulmonary nodules are non FDG avid but below size threshold for accurate FDG assessment. Recommend CT Chest at 3-6 months, then CT Chest at 18-24 months. 2. Decreased small right pleural effusion and mrdqt-fqblqrb-ngzu-left basilar atelectasis. 3. FDG avid 7 mm right thyroid nodule. Recommend nonemergent thyroid ultrasound. 4. Multiple subacute healing right rib fractures as well as subacute healing bilateral sacral and pelvic fractures as above. Focal low-level FDG uptake at the anterolateral left 3rd rib without underlying CT abnormality also suspected to represent fracture. 5. Additional chronic and incidental findings as above, to include findings that may be seen in the setting of constipation.
== END 2025-07-14 23:59 | disposition home or self-care (01) ==
LOC: ONCMED 07-02 10:43
PROVIDERS: PCP Nurse Practitioner Family; Visit Provider Internal Medicine Medical Oncology
DX: D64.9 Anemia, unspecified (principal); R03.0 Elevated blood-pressure reading, without diagnosis of hypertension; M06.9 Rheumatoid arthritis, unspecified; Z87.891 Personal history of nicotine dependence; Z79.899 Other long term (current) drug therapy; R91.8 Other nonspecific abnormal finding of lung field; K86.9 Disease of pancreas, unspecified
CPT/HCPCS: 72190; 78815; 94060; 94726; 94729; 99213; A9552

== ENCOUNTER → 2025-07-04 09:50 | Outpatient (BNVA) | payer MEDICARE, MEDICAID, SELFPAY | PROVIDERS: PCP Nurse Practitioner Family; Visit Provider Nurse Practitioner Family | DX: L30.9 Dermatitis, unspecified (principal); L73.8 Other specified follicular disorders; L57.0 Actinic keratosis | CPT/HCPCS: 17000; 99204 ==

== ENCOUNTER → 2025-07-18 13:34 | Outpatient (BNVA) | payer MEDICARE, MEDICAID, SELFPAY | PROVIDERS: PCP Nurse Practitioner Family; Visit Provider Internal Medicine | DX: R91.8 Other nonspecific abnormal finding of lung field (principal); J43.9 Emphysema, unspecified; M06.9 Rheumatoid arthritis, unspecified; K86.89 Other specified diseases of pancreas; F17.210 Nicotine dependence, cigarettes, uncomplicated; Z86.73 Personal history of transient ischemic attack (TIA), and cerebral infarction without residual deficits | CPT/HCPCS: 99214; Q3014 ==

== ENCOUNTER → 2025-07-23 10:40 | Outpatient (BNVA) | payer MEDICARE, MEDICAID, SELFPAY | PROVIDERS: PCP Nurse Practitioner Family; Visit Provider Orthopaedic Surgery | DX: S32.82XD Multiple fractures of pelvis without disruption of pelvic ring, subsequent encounter for fracture with routine healing (principal); S32.10XS Unspecified fracture of sacrum, sequela; X58.XXXD Exposure to other specified factors, subsequent encounter; X58.XXXS Exposure to other specified factors, sequela | CPT/HCPCS: 72190; 99213 ==

== ENCOUNTER 2025-08-05 11:45 | Oncology outpatient (recurring) (ONCR) | payer MEDICARE, MEDICAID, SELFPAY ==
--- NOTE | 2025-07-16 09:30 | MR_ITS ---
WS: [id number] MRI/MRCP OF THE ABDOMEN WITHOUT GADOLINIUM ENHANCEMENT TECHNIQUE: Coronal T2 Fase BH, Axial T2 Fase BH, Axial T2 FS BH, Zxial 3D Zamora BH, Axial DWI BH, 2D MRCP Radial BH, 3D MRCP (Resp), and Axial 3D Dyn BH Post sequences. CLINICAL INFORMATION: attention pancreas COMPARISON: CT 05/23/2025 FINDINGS: Some images significantly degraded by respiratory and motion artifact. No hydronephrosis in either kidney. Small bilateral renal cysts. Aortic calcification. Normal caliber abdominal aorta. Fatty liver. Hepatomegaly. No evidence of pancreatic mass or lesion considering motion and respiratory artifact limitations. No intrahepatic biliary ductal dilatation. Bilateral sacral insufficiency fractures MR/MR abdomen wo/w con* [id number] Impression: Images degraded by motion and respiratory artifact. No evidence of pancreatic mass or lesion considering limitations.
[2025-08-05 11:04] LABS: Hematocrit 33.2 % (36-47); Hemoglobin 10.50 g/dL (11.27-16.99); Mean Corpuscular HGB Conc 31.6 g/dL (30-55); Mean Corpuscular Hemoglobin 27.1 pg (27-33); Mean Corpuscular Volume 85.8 fl (85-98); Nucleated Red Blood Cells % 0 %; Platelet Count 467 10^3/cmm (157-399); Red Blood Count 3.87 10^6/uL (3.85-5.65); White Blood Count 3.78 10^3/uL (3.29-11.43)
[2025-08-05 11:26] LABS: Alanine Aminotransferase 16 U/L (0-33); Albumin Level 3.7 g/dL (3.5-5.2); Alkaline Phosphatase 199 U/L (35-105); Anion Gap 14.1 (5-19); Aspartate Amino Transferase 15 U/L (0-32); Blood Urea Nitrogen 19 mg/dL (8-23); Calcium 9.5 mg/dL (8.5-10.5); Carbon Dioxide 25 mmol/L (22-29); Chloride 93 mmol/L (98-107); Ferritin 147 ng/mL (15-150); Globulin 3.8 g/dL (1.3-4.6); Glucose 88 mg/dL (65-115); Iron 28 ug/dL (37-145); Osmolality Calculated 266 mOsm/kg (285-295); Potassium 5.1 mmol/L (3.5-5.1); Sodium 127 mmol/L (136-145); Total Iron Binding Capacity 287 mcg/dl; Total Protein 7.5 g/dL (6.6-8.7); Unsaturated Iron Binding 259 ug/dL (112-347)
[2025-08-05 11:42] LABS: Vitamin B12 525 pg/mL (232-1245)
== END 2025-08-13 23:59 | disposition home or self-care (01) ==
PROVIDERS: PCP Nurse Practitioner Family; Visit Provider Internal Medicine Medical Oncology
DX: D64.9 Anemia, unspecified; E61.1 Iron deficiency; F17.200 Nicotine dependence, unspecified, uncomplicated; R03.0 Elevated blood-pressure reading, without diagnosis of hypertension; J98.4 Other disorders of lung; E87.1 Hypo-osmolality and hyponatremia; Z53.9 Procedure and treatment not carried out, unspecified reason; E04.1 Nontoxic single thyroid nodule; K86.9 Disease of pancreas, unspecified; R91.8 Other nonspecific abnormal finding of lung field
CPT/HCPCS: 36415; 74183; 80053; 82607; 82728; 82746; 83540; 83550; 85025; 99204; 99214

== ENCOUNTER 2025-08-19 10:00 | Observation (INO) | payer MEDICARE, MEDICAID, SELFPAY ==
[2025-08-19] VITALS (8 sets, daily range): BP systolic 125–172; BP diastolic 71–100; PULSE 66–86; RESP 12–22; TEMP 35.7–37.2; O2SAT 93–100; BMI 15.5
--- OUTSIDE RECORDS SUMMARY | 2025-08-19 10:08 | XMS_ITS | Encounter Summary ---
Author Organization [facility] Address [address] [place] [address] Care Team Providers [facility] Name Role Phone Unavailable Primary Care Provider Unavailabl e Encounter Details Date Type Department Care Team (Late st Contact Info) Description 08/13/2025 External Device Data [facility] ABSTRACTION Provider, Abstract NO ADDRESS ON FILE Social History Tobacco Use Types Packs/Day Years Used Date Smoking Tobacco: Every Day Cigarettes 0.5 54.1 Started: 07/15/1971 Alcohol Use Standard Drinks/Week Comments Never 0 (1 standard drink = 0.6 oz pur e alcohol) Feeling Safe Answer Date Recorded Are you in a relationship wi th someone who hurts you emotionally and/or physically? No 07/15/2025 Comments Unknown Sex and Gender Information Value Date Recorded Sex Assigned at Not on file Legal Sex Female 9:53 AM CDT Gender Identity Not on file Sexual Orientation Not on file documented as of this encounter Plan of Treatment Not on file documented as of this encounter Visit Diagnoses Not on filedocumented in this encounter
--- OUTSIDE RECORDS SUMMARY | 2025-08-19 10:08 | XMS_ITS | Encounter Summary ---
Author Organization [facility]. Address [address] [place] [address] Care Team Providers Care Director General Name Role Phone Unavailable Primary Care Provider [...]
--- OUTSIDE RECORDS SUMMARY | 2025-08-19 10:08 | XMS_ITS | Clinical Summary ---
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 Active pantoprazole (PROTONIX) 40 mg Tablet, Delayed Release (E.C.) Take 40 mg by mouth daily. Active clopidogreL (PLAVIX) 75 mg Tablet Take 75 mg by mouth daily. Active HYDROcodone-rut taminophen (NORCO) 5-325 mg tablet Take 1 Tablet by mouth every 4 hours as needed for Pain, Moderate. Active albuterol sulfate HFA 90 mcg/actuation aerosol inhaler Take 2 Puffs by inhalation every 6 hours as needed for Shortness of Breath. Active FLUTICASONE PROPION-SALMETE ROL INHALATION Take by inhalation. Active Active Problems Problem Noted Date Diagnosed Date Acute mid back pain 07/15/2025 Encounters Date Type Department Care Team Description 08/13/2025 External Device Data [facility] ABSTRACTION Provider, Abstract 08/13/2025 External Device Data [facility] ABSTRACTION Provider, Abstract 08/13/2025 External Device Data [facility] ABSTRACTION Provider, Abstract 07/16/2025 External Device Data [facility] ABSTRACTION Provider, Abstract 07/16/2025 External Device Data [facility] ABSTRACTION Provider, Abstract 07/16/2025 External Device Data [facility] ABSTRACTION Provider, Abstract 07/15/2025 9:59 AM CDT - 07/15/2025 12:55 PM CDT Emergency [facility] Emergency Medicine [address] [facility] [address] [place] [id number] Sandy Nolan MD Acute mid back pain (Primary Dx) Discharge Disposition: Home or Self Care 07/15/2025 Travel from Last 3 Months Social History Tobacco Use Types Packs/Day Years Used Date Smoking Tobacco: Every Day Cigarettes 0.5 54.1 Started: 07/15/1971 Tobacco Cessation:Ready to Q uit: Not Asked; Counseling Given: Not Answered Alcohol Use Standard Drinks/Week Comments Never 0 [...] on file Sexual Orientation Not on file Last Filed Vital Signs Vital Sign Reading Time Taken Comments Blood Pressure 127/68 07/15/2025 12:45 PM CDT Pulse 75 07/15/2025 12:45 PM CDT Temperature 36.6 C (97.8 F) 07/15/2025 9:59 AM CDT Respiratory Rate 18 07/15/2025 12:45 PM CDT Oxygen Saturation 96% 07/15/2025 12:45 PM CDT Inhaled Oxygen Concentration - - Weight 38.6 kg (85 lb) 07/15/2025 9:59 AM CDT Height - - Body Mass Index - - Plan of Treatment Health Maintenance Due Date Last Done Comments DTAP/TDAP/TD VACCINES (1 - Tdap) 1970 PNEUMOCOCCAL VACCINE 50+ YEARS (1 of 2 - PCV) 05/20/19 70 BREAST CANCER SCREENING 1991 COLORECTAL SCREENING 1996 Colorectal Cancer Screening 1996 FIT-DNA Q 3 years 1996 FIT/FOBT Q 1 year 1996 Flex Sig/CT Colonography Q 5 years 1996 Lung Cancer Screening 2001 ZOSTER VACCINE (1 of 2) 2001 OSTEOPOROSIS SCREENING 2016 INFLUENZA VACCINE (#1) 2025 RSV VACCINE (60+ or ) (1 - 1-dose 75+ series) 2026 Procedures Procedure Name Priority Date/Time Associated Diagnosis Comments TELEMETRY REPORT 07/17/2025 6:14 AM CDT TROPONIN 2 HR, 5TH GEN Timed Study 07/15/2025 12:07 PM CDT URINALYSIS MICROSCOPY ONLY Stat 07/15/2025 10:45 AM CDT URINALYSIS W/REFLEX MICROSCOPIC Stat 07/15/2025 10:45 AM CDT XR CHEST PA OR AP 1 VW Stat 07/15/2025 10:42 AM CDT LIPASE Stat 07/15/2025 10:07 AM CDT TROPONIN BASELINE, 5TH GEN Stat 07/15/2025 10:07 AM CDT MAGNESIUM LEVEL Stat 07/15/2025 10:07 AM CDT C-REACTIVE PROTEIN Stat 07/15/2025 10 :07 AM CDT BRAIN NATRIURETIC PEPTIDE, BNP OR PROBNP Stat 07/15/2025 10:07 AM CDT COMPREHENSIVE METABOLIC PANEL Stat 07/15/2025 10:07 AM CDT SEDIMENTATION RATE Stat 07/15/2025 10 :07 AM CDT PTT Stat 07/15/2025 10:07 AM CDT PROTIME-INR Stat 07/15/2025 10:07 AM CDT CBC WITH DIFFERENTIAL Stat 07/15/2025 10:07 AM CDT EKG 12-LEAD Stat 07/15/2025 9:58 AM CDT from Last 3 Months Results * TELEMETRY REPORT (07/17/2025 6:14 AM CDT) us Provider Scanning ECG ORDERABLES Final Result * TROPONIN 2 HR, 5TH GEN (07/15/2025 12:07 PM CDT) TROPONIN T, 2 HR 5TH GEN 9 <=10 ng/L 07/15/2025 12:39 PM CDT [facility] DELTA 2HR TROPONIN T 1 See Interp. 07/15/2025 12:39 PM CDT [facility] Blood BLOOD SPECIMEN / Unknown Venipuncture / Unknown 07/15/2025 12:07 PM CDT 07/15/2025 12:20 PM CDT Narrative [facility] - 07/15/2025 12:39 PM CDT Troponin Detectable but normal range. Delta not changing. us Sandy Nolan MD CHEMISTRY ORDERABLES Final Resu lt Performing Organization Address City/[facility]/ZIP Co de Phone Number [facility] CLIA # [id number] [address] [place] [address] * URINALYSIS MICROSCOPY ONLY (07/15/2025 10:45 AM CDT) WBC UA 0-2 0 - 2 /hpf 07/15/2025 10:59 AM CDT [facility] RBC UA 0-2 0 - 2 /hpf 07/15/2025 10:59 AM CDT [facility] BACTERIA UA Negative Negative /hpf 07/15/2025 10:59 AM CDT [facility] EPITHELIAL CELLS, URINE 0-5 0 - 5 /hpf 07/15/2025 10:59 AM CDT [facility] Urine URINE SPECIMEN OBTAINED BY CLEAN CATCH PROCEDURE / Unknown Collection / Unknown 07/15/2025 10:45 AM CDT 07/15/2025 10:54 AM CDT us Sandy Nolan MD URINE ORDERABLES Final Result Performing Organization Address [facility]/ZIP Co de Phone Number [facility] CLIA # [id number] [address] [place] [address] * (ABNORMAL) URINALYSIS WITH REFLEX MICROSCOPIC (07/15/2025 10:45 AM CDT) COLOR UA Yellow Pale to Dark Yellow 07/15/2025 10:59 AM CDT [facility] CLARITY UA Slightly Cloudy(A) Clear 07/15/2025 10:59 AM CDT [facility] SPECIFIC GRAVITY UA 1.015 1.003 - 1.035 07/15/2025 10:59 AM CDT [facility] PH UA 8.0 5.0 - 8.0 07/15/2025 10:59 AM CDT [facility] LEUKOCYTE ESTERASE UA Negative Negative 07/15/2025 10:59 AM CDT [facility] NITRITE UA Negative Negative 07/15/2025 10:59 AM CDT [facility] PROTEIN UA 1+(A) Negative 07/15/2025 10:59 AM CDT [facility] GLUCOSE UA Negative Negative 07/15/2025 10:59 AM CDT [facility] KETONES UA Negative Negative 07/15/2025 10:59 AM CDT [facility] UROBILINOGEN UA 0.2 <2.0 mg/dL 10:59 AM CDT [facility] BILIRUBIN UA Negative Negative 07/15/2025 10:59 AM CDT [facility] BLOOD UA Negative Negative 07/15/2025 10:59 AM CDT [facility] Urine URINE SPECIMEN OBTAINED BY CLEAN CATCH PROCEDURE / Unknown Collection / Unknown 07/15/2025 10:45 AM CDT 07/15/2025 10:54 AM CDT Sandy Nolan MD URINE ORDERABLES Final Result [id number] [address] [place] [address] [phone] * XR CHEST PA OR AP 1 VW (07/15/2025 10:42 AM CDT) Anatomical Region Laterality Modality Chest Computed Radiogr aphy 07/15/2025 10:4 2 AM CDT Impressions 07/15/2025 10:46 AM CDT Impression: The cardiomediastinal structures are within normal limits. No pulmonary consolidation, pleural effusion or pneumothorax is identified. The osseous structures appear grossly intact. Narrative 07/15/2025 10:46 AM CDT Exam: XR CHEST PA OR AP 1 VW Date/Time of Exam: 07/15/2025 10:42 AM Reason For Exam: Chest Pain. Diagnosis: See Reason for Exam. Comparison: None. Procedure Note Brandan Mancilla MD - 07/15/2025 Exam: XR CHEST PA OR AP 1 VW Date/Time of Exam: 07/15/2025 10:42 AM Reason For Exam: Chest Pain. Diagnosis: See Reason for Exam. Comparison: None. Impression: The cardiomediastinal structures are within normal limits. No pulmonary consolidation, pleural effusion or pneumothorax is identified. The osseous structures appear grossly intact. us Sandy Nolan MD DIAGNOSTIC IMAGING ORDERABLES F inal Result * TROPONIN BASELINE, 5TH GEN (07/15/2025 10:07 AM CDT) TROPONIN T, BASELINE 5TH GEN 8 <=10 ng/L 07/15/2025 10:44 AM CDT [facility] Blood BLOOD SPECIMEN / Unknown Venipuncture / Unknown 07/15/2025 10:07 AM CDT 07/15/2025 10:11 AM CDT Narrative [facility] - 07/15/2025 10:44 AM CDT Troponin Detectable but normal range. us Sandy Nolan MD CHEMISTRY ORDERABLES Final Resu lt [facility] CLIA # [id number] [address] [place] [address] * (ABNORMAL) CBC WITH DIFFERENTIAL (07/15/2025 10:07 AM CDT) WBC 7.9 4.0 - 10.0 K/uL 07/15/2025 10:16 AM CDT [facility] RBC 3.99 3.93 - 5.22 M/uL 07/15/2025 10:16 AM [facility] HEMOGLOBIN 10.7(L) 11.2 - 15.7 g/dL 07/15/2025 10:16 AM [facility] HEMATOCRIT 32.9(L) 34.1 - 44.9 % 07/15/2025 10:16 AM [facility] MCV 82.5 79.4 - 94.8 fL 07/15/2025 10:16 AM [facility] MCH 26.8 25.6 - 32.2 pg 07/15/2025 10:16 AM [facility] MCHC 32.5 32.2 - 35.5 g/dL 07/15/2025 10:16 AM [facility] RDW 19.0(H) 11.0 - 14.5 % 07/15/2025 10:16 AM [facility] RDW-STDEV 57.4(H) 36.9 - 56.9 fL 07/15/2025 10:16 AM [facility] PLATELETS 404(H) 163 - 337 K/uL 07/15/2025 10:16 AM [facility] MPV 9.1(L) 10.0 - 14.8 fL 07/15/2025 10:16 AM [facility] NEUTROPHILS 80(H) 34 - 71 % 07/15/2025 10:16 AM [facility] LYMPHOCYTES 10(L) 19 - 52 % 07/15/2025 10:16 AM [facility] MONOCYTES 8 5 - 13 % 07/15/2025 10:16 AM [facility] EOSINOPHILS 1 1 - 6 % 07/15/2025 10:16 AM [facility] BASOPHILS 0 0 - 1 % 07/15/2025 10:16 AM [facility] IMMATURE GRANULOCYTES 0 % 07/15/2025 10:16 AM [facility] NEUTROPHIL ABSOLUTE 6.30(H) 1.56 - 6.13 K/uL 07/15/2025 10:16 AM CDT [facility] LYMPHOCYTE ABSOLUTE 0.78(L) 1.20 - 3.40 K/uL 07/15/2025 10:16 AM T [facility] MONOCYTE ABSOLUTE 0.66(H) 0.24 - 0.36 K/uL 07/15/2025 10:16 AM T [facility] EOSINOPHIL ABSOLUTE 0.09 0.04 - 0.36 K/uL 07/15/2025 10:16 AM T [facility] BASOPHILS ABSOLUTE 0.03 0.01 - 0.08 K/uL 07/15/2025 10:16 AM T [facility] IMMATURE GRANULOCYTES ABSOLUTE 0.03 K/uL 07/15/2025 10:16 AM T [facility] Blood BLOOD SPECIMEN / Unknown Venipuncture / Unknown 07/15/2025 10:07 AM CDT 07/15/2025 10:11 AM CDT us Sandy Nolan MD HEMATOLOGY ORDERABLES Final Res ult Performing Organization Address City/[facility]/ZIP Co de Phone Number [facility] CLIA # [id number] [address] [place] [phone] * PTT (07/15/2025 10:07 AM CDT) PTT 26.5 25.1 - 35.4 seconds 07/15/2025 10:44 AM CDT [facility] Blood BLOOD SPECIMEN / Unknown Venipuncture / Unknown 07/15/2025 10:07 AM CDT 07/15/2025 10:11 AM CDT us Sandy Nolan MD HEMATOLOGY ORDERABLES Final Res ult [facility] CLIA # [id number] [address] [place] [address] * (ABNORMAL) SEDIMENTATION RATE (07/15/2025 10:07 AM CDT) ESR (SEDIMENTATION RATE) 92(H) 0 - 30 mm/Hr 07/15/2025 10:28 AM CDT [facility] Blood BLOOD SPECIMEN / Unknown Venipuncture / Unknown 07/15/2025 10:07 AM CDT 07/15/2025 10:11 AM CDT Narrative [facility] - 07/15/2025 10:28 AM CDT Tube Lot: #[id number] Exp Date: 11/13/2026 QC1 LOT [id number] EXP.11/18/2025 QC2 LOT [id number] EXP.11/18/2025 us Sandy Nolan MD HEMATOLOGY ORDERABLES Final Res ult [facility] CLIA # [id number] [address] [place] [address] * PROTIME-INR (07/15/2025 10:07 AM CDT) PROTIME 12.7 12.1 - 14.3 Seconds 07/15/2025 10:44 AM CDT [facility] INR 1.0 0.9 - 1.1 07/15/2025 10:44 AM CDT [facility] Blood BLOOD SPECIMEN / Unknown Venipuncture / Unknown 07/15/2025 10:07 AM CDT 07/15/2025 10:11 AM CDT us Sandy Nolan MD HEMATOLOGY ORDERABLES Final Res ult [facility] CLIA # [id number] [address] [place] [address] [id number] * (ABNORMAL) C-REACTIVE PROTEIN (07/15/2025 10:07 AM CDT) CRP 23.6(H) <5.0 mg/L 07/15/2025 10:44 AM CDT [facility] Blood BLOOD SPECIMEN / Unknown Venipuncture / Unknown 07/15/2025 10:07 AM CDT 07/15/2025 10:11 AM CDT us Sandy Nolan MD CHEMISTRY ORDERABLES Final Resu Performing Organization Address [facility]/ZIP Co de Phone Number [facility] CLIA # [id number] [address] [place] [phone] * (ABNORMAL) BRAIN NATRIURETIC PEPTIDE, BNP OR PROBNP (07/15/2025 10:07 AM CDT) PROBNP, N TERMINAL 397(H) 0 - 125 pg/mL 07/15/2025 10:44 AM CDT [facility] Comment: INTERPRETIVE COMMENT based on diagnosis: Diagnostic NT pro-BNP cutoffs for Heart Failure in the absence of renal failure is suggested for the following ranges <75 years: <125 pg/mL >=75 years: <450 pg/mL Exclusionary rule out cut-point for Acute Decompensated Heart Failure(ADHF) All ages: <300 pg/mL Diagnostic NT pro-BNP cutoffs for Acute Decompensated Heart Failure(ADHF) in the absence of renal failure is suggested for the following ages <50 years: > 450 pg/mL 50-75 years: > 900 pg/mL >75 years: >1800 pg/mL Blood BLOOD SPECIMEN / Unknown Venipuncture / Unknown 07/15/2025 10:07 AM CDT 07/15/2025 10:11 AM CDT us Sandy Nolan MD CHEMISTRY ORDERABLES Final Resu [facility] CLIA # [id number] [address] [place] [address] * MAGNESIUM LEVEL (07/15/2025 10:07 AM CDT) MAGNESIUM 1.8 1.6 - 2.4 mg/dL 07/15/2025 10:44 AM CDT [facility] Blood BLOOD SPECIMEN / Unknown Venipuncture / Unknown 07/15/2025 10:07 AM CDT 07/15/2025 10:11 AM CDT us Sandy Nolan MD CHEMISTRY ORDERABLES Final Resu lt Performing Organization Address City/[facility]/ZIP Co de Phone Number [facility] CLIA # [id number] [address] [place] [address] * LIPASE (07/15/2025 10:07 AM CDT) Pathologist [facility] LIPASE 14 13 - 60 U/L 07/15/2025 11:46 AM [facility] Blood BLOOD SPECIMEN / Unknown Venipuncture / Unknown 07/15/2025 10:07 AM CDT 07/15/2025 10:11 AM CDT us Sandy Nolan MD CHEMISTRY ORDERABLES Final Resu lt Performing Organization Address City/[facility] Co de Phone Number [facility] CLIA # [id number] [address] [place] [address] * (ABNORMAL) COMPREHENSIVE METABOLIC PANEL (07/15/2025 10:07 AM CDT) [facility] SODIUM 127(L) 136 - 145 mmol/L 07/15/2025 10:44 AM [facility] POTASSIUM 5.0 3.5 - 5.1 mmol/L 07/15/2025 10:44 AM [facility] Comment:Slightly hemolyzed. Result may be falsely elevated. CHLORIDE 94(L) 98 - 107 mmol/L 07/15/2025 10:44 AM [facility] CO2 22 22 - 29 mmol/L 07/15/2025 10:44 AM [facility] CALCIUM 9.5 8.8 - 10.2 mg/dL 07/15/2025 10:44 AM [facility] BUN 14 8 - 23 mg/dL 07/15/2025 10:44 AM [facility] CREATININE 0.39(L) 0.51 - 0.95 mg/dL 07/15/2025 10:44 AM [facility] Comment:The GFR result is no t clinically significant on patients <18 or >70 years of age. GLUCOSE 95 74 - 99 mg/dL 07/15/2025 10:44 AM [facility] TOTAL PROTEIN 7.4 6.6 - 8.7 g/dL 07/15/2025 10:44 AM [facility] ALBUMIN 3.6 3.5 - 5.2 g/dL 07/15/2025 10:44 AM [facility] BILIRUBIN TOTAL 0.2 0.0 - 1.2 mg/dL 07/15/2025 10:44 AM [facility] ALKALINE PHOSPHATASE 236(H) 35 - 104 U/L 07/15/2025 10:44 AM [facility] AST 31 0 - 35 U/L 07/15/2025 10:44 AM [facility] Comment:Hemolysis present. R esult may be falsely elevated. ALT 16 0 - 35 U/L 07/15/2025 10:44 AM [facility] GFR >60 mL/min/1.7 3 sq meter 07/15/2025 10:44 AM [facility] Comment:eGFR calculated with 2020 CKD-EPI equation. Vegetarian diet, extremely high or low muscle mass, and may affect results. Cystatin C with Glomerular Filtration Rate is a suitable alternative for these patients. ANION GAP 11 5 - 20 mmol/L 07/15/2025 10:44 AM [facility] Blood BLOOD SPECIMEN / Unknown Venipuncture / Unknown 07/15/2025 10:07 AM CDT 07/15/2025 10:11 AM CDT us Sandy Nolan MD CHEMISTRY ORDERABLES Final Resu lt [facility] CLIA # [id number] [address] [place] [address] * EKG 12-LEAD (07/15/2025 9:58 AM CDT) Narrative Day, Shamuel M, MD - 07/15/2025 9:58 AM CDT Sandy Nolan MD 07/15/2025 12:53 PM EKG 12-LEAD Date/Time: 07/15/2025 9:58 AM Performed by: Sandy Nolan MD Authorized by: Sandy Nolan MD ECG interpreted by ED Physician in the absence of a transportation escort: yes Rate: ECG rate: 78 ECG rate assessment: age appropriate Rhythm: Rhythm Origin: sinus Hill: QRS axis: Normal Intervals: normal QRSTT: QRSTT changes: Yes Comments: ST segment abnormalities in leads V3-V6. P wave inversions. Sandy Nolan MD ECG ORDERABLES Final Result from Last 3 Months Insurance [facility] MEDICAID [place]
--- OUTSIDE RECORDS SUMMARY | 2025-08-19 10:08 | XMS_ITS | Encounter Summary ---
Author Organization [email or web address] Address [address] [place] [address] Care Team Providers Care Social Security Assessor Name Role Phone Unavailable Primary Care Provider [...]
--- NOTE | 2025-08-19 10:20 | XR_ITS ---
WS: [id number] Portable AP upright chest, 08/19/2025 Clinical Data: weakness Comparison: Chest 2 view, 03/02/2023 Findings: No nodules, masses or effusions are seen. The heart is normal. The pulmonary vascularity is not increased. No pneumonia or pneumothorax is seen. The diaphragms are flattened. The aortic arch shows calcification and tortuosity. There are old right rib fractures. XR/XR chest 1V portable [id number] Impression: Atherosclerosis and hyperinflation.
--- NOTE | 2025-08-19 10:20 | ECG_ITS ---
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 Measurements Intervals [place] Rate: 73 P: 52 MD: 168 QRS: 35 QRSD: 89 T: 61 QT: 387 QTc: 427 Interpretive Statements SINUS RHYTHM INTERPRETATION BASED ON A DEFAULT AGE OF 40 YEARS Compared to ECG 06/23/2025 20:05:36 Poor R-wave progression no longer present Electronically Signed On 08-20-2025 23:57:24 CDT by Popeye Richter M.D. [email or web address]
--- NOTE | 2025-08-19 10:21 | W.ED.WEAKNES ---
Documented by User: LAVERN Casarez 08/19/25 14:05 HPI - Weakness General: Chief complaint: Weakness Stated complaint: weakness all over, unable to keep head up Time Seen by Provider: 08/19/25 10:06 Source: patient and family (daughter) Mode of arrival: wheelchair Limitations: no limitations History of Present Illness: Patient is a 75-year-old female here with her daughter for concerns of generalized/right sided weakness. Patient has a history of previous CVA leaving her with significant left-sided deficits that she is currently receiving physical therapy for. Daughter states on Tuesday night she began complaining that both of her arms were not working right . She said she felt tired and went to bed early. Daughter states Tuesday morning she woke up and could not use her right side . Daughter states she is normally ambulatory with the help of a cane that she uses with her right arm. Daughter states she could not get her out of bed secondary to weakness and lack of use of her right side. Daughter states called for an ambulance who took her to [facility]. Daughter states she underwent labs, CT imaging as well as MRI imaging of her head and was told she did not have a stroke and was discharged home. She was told that her sodium was low. Daughter here today requesting a second opinion and for us to figure out what is wrong with my mom . Patient is alert and oriented upon arrival. She states she is not hurting anywhere. She does not complain of numbness or tingling to her extremities-she just says they will not work . She does not complain of a headache, neck, or back pain. No recent illness/no fevers. PMH-previous CVA, osteoarthritis, hyperlipidemia, COPD, GERD, chronic anemia Complaint: generalized weakness (R sided weakness, chronic L sided weakness) Onset (ago): day(s) Duration: constant Location: RUE and RLE Migration: none Severity: severe Relieving factors: none Exacerbating factors: none Associated symptoms: Denies chest pain, chills, confusion, dysuria, fever(s), headache(s), nausea, syncope or vomiting Related Data Home Medications ?Medication ?Instructions ?Recorded ?Confirmed clobetasol 0.05 % topical ointment 1 applic topical BID PRN Rash 07/18/25 08/19/25 potassium chloride 8 mEq 8 meq PO DAILY 08/19/25 08/19/25 tablet,extended release sucralfate 1 gram tablet 1 g PO Q12H 08/19/25 08/19/25 Previous Rx's ?Medication ?Instructions ?Recorded albuterol sulfate 90 mcg/actuation 1 inh inhalation Q6H PRN shortness 06/21/25 aerosol inhaler (Ventolin HFA) of breath or wheezing #8.5 grams fluticasone 250 mcg-salmeterol 50 1 inh inhalation BID 30 days #60 ea 06/21/25 mcg/dose blistr powdr for inhalation (Advair Diskus) pantoprazole 40 mg tablet,delayed 40 mg PO BID 90 days #180 tabs 06/21/25 release clopidogrel 75 mg tablet See Rx Instructions .Route 07/23/25 .COMPLEX #30 tabs lidocaine 5 % topical patch See Rx Instructions topical 08/07/25 .COMPLEX 30 days #30 ea hydrocodone 5 mg-acetaminophen 325 1 tab PO Q12H PRN pain 30 days #60 08/13/25 mg tablet tabs Allergies Allergy/AdvReac Type Severity Reaction Status Date / Time sulfasalazine AdvReac Intermediate severe N/V Verified 08/05/25 11:08 Review of Systems Const: Reports: fatigue; Denies: fever(s), chills, body aches or malaise Eyes: Denies: change in vision or blurry vision Card: Denies: chest pain, palpitations, irregular heart rhythm, lightheadedness, syncope or dyspnea on exertion Resp: Denies: dyspnea, productive cough or pain on inspiration GI: Denies: abdominal pain, nausea, vomiting, heartburn or diarrhea : Denies: dysuria Musc: Denies: neck pain, back pain, extremity pain, extremity swelling or joint pain Skin/Breast: Denies: rash Neuro: Reports: weakness in extremities and difficulty walking; Denies: headache(s), numbness in extremities, sensory changes, lack of coordination, frequent falls, dizziness, vertigo, confusion, behavioral changes, Slurred speech present, difficulty communicating thoughts or seizure-like activity PFS ED PFSH: Medical History Chronic pain of both knees Panic attacks Left-sided weakness Medication refill Mixed hyperlipidemia Skin abrasion Cellulitis of right breast Skin sore Erosive osteoarthritis of both hands Seropositive rheumatoid arthritis of multiple sites Osteoarthritis Joint pain Positive DAIANA (antinuclear antibody) High risk medication use Immunization counseling Rheumatoid arthritis with rheumatoid factor Surgical History History of tubal ligation Family History Brother Cancer Prostate Other Rheumatoid arthritis Denies family history of Diabetes Lupus CAD (coronary artery disease) Hyperlipidemia Chronic kidney disease (CKD) Lung disease Hypertension Stroke Social History Smoking and tobacco/nicotine status: current every day tobacco/nicotine user Second hand smoke exposure: No Alcohol intake: former Substance/Drug Use: never Caregiver/support person: No Lives independently: Yes Household members: none Housing: House Marital status: / Number of children: 3 service: No Current occupational status: retired Do you think of yourself as: Straight/Heterosexual Current gender identity: Female Physical Exam Const: COMMON NORMALS: no acute distress, patient oriented x3, no limitations and alert GENERAL APPEARANCE: cooperative and frail appearing NUTRITIONAL APPEARANCE: thin ORIENTATION/CONSCIOUSNESS: Yes awake, Yes oriented to person, Yes oriented to place and Yes oriented to time HENMT: COMMON NORMALS: normocephalic and atraumatic HEAD & SCALP: normal to inspection, normocephalic and atraumatic FACE & SINUS: normal facial exam and face symmetric TEETH & GINGIVA: Yes edentulous Eye: COMMON NORMALS: Equal, round and reactive pupils present and EOMs intact bilaterally GENERAL EYE: appearance normal, both eyes and all related structures and normal light reflex PUPIL: Yes Equal, round and reactive pupils present DIRECT OPHTHALMOSCOPY: Yes normal light reflex Neck/C-Spine: COMMON NORMALS: no lymphadenopathy, no meningeal signs and no JVD GENERAL: Yes normal visual inspection Resp: COMMON NORMALS: normal respiratory effort and clear to auscultation bilaterally AUSCULTATION: clear to auscultation bilaterally Cardio: COMMON NORMALS: no JVD, regular rate and regular rhythm RATE: regular rate RHYTHM: regular rhythm GI: COMMON NORMALS: Normal to inspection, nondistended, normoactive bowel sounds present, Soft to palpation and non-tender PALPATION: Yes Soft to palpation Back/Pelvis: COMMON NORMALS: thoracic and lumbar spine normal to inspection Extremity: COMMON NORMALS: capillary refill normal, no clubbing, cyanosis or edema, no calf tenderness and no pedal edema NARRATIVE EXTREMITY EXAM: contractures to bilateral hands/fingers; hx of erosive osteoarthritis GENERAL: Yes normal exam except as noted Neuro: KAREN COMA SCALE: document GCS findings Karen coma scale eye opening: Spontaneous Karen coma scale verbal response: Orientated Irving coma scale motor response: Obey commands Karen coma scale total score: 15 COMMON NORMALS: patient oriented x3 SENSORIUM/ORIENTATION: Yes alert, Yes oriented to person, Yes oriented to place and Yes oriented to time MENINGEAL SIGNS: Yes no meningeal signs SPEECH: speech normal GAIT: Yes Unable to assess gait SENSORY EXAM: Yes other (sensory appears normal ) OTHER: pt has minimal effort against gravity of her R leg-barely able to pick it off the bed-maybe 1-2cm before dropping she has chronic deficits/weakness to her L leg but is able to lift this about an inch or so off the bed and hold for about 2 seconds before dropping she has chronic deficits/weakness to her L arm and is not able to elicit any movement against gravity of this extremity-reportedly this is her normal baseline pt has minimal effort against gravity of her R arm, can flex at the elbow but is not able to hold this up Skin: COMMON NORMALS: no rashes or lesions noted GENERAL SKIN EXAM: no rashes or lesions noted Course ED course: Patient is over 24 hours post symptom onset thus stroke alert was not called. This was discussed with Dr. Singleton. We are trying to obtain records from [facility]. Her NIH score is 8 however this was scoring her chronic deficits to her L side. We were able to obtain records from [facility]. According to the provider notes, patient was being seen for worsening left-sided deficits. It does not mention anything regarding her right sided deficits. This was discussed with the patient as well as patient daughter who seemed confused and frustrated over this. Daughter states this is specifically what she took patient to [facility] for. She did have CTA head/neck obtained showing no large vessel occlusion. 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 CT head was unremarkable. They did not undergo MRI imaging like the daughter had originally thought. They were discharged home with impression that her weakness was suspected recrudescence from metabolic insult AMANDO versus UTI. Vital Signs: Vital signs: Vital Signs Temperature 96.2 F L 08/19/25 15:38 Pulse Rate 66 08/19/25 15:38 Respiratory Rate 14 08/19/25 15:38 Blood Pressure 125/75 08/19/25 15:38 Pulse Oximetry 93 08/19/25 15:38 Oxygen Delivery Me thod Room Air 08/19/25 15:38 MDM - Weakness Medical Decision Making Patient is a 75-year-old female here along with her daughter who is her primary caregiver with concerns of weakness/right sided weakness. Patient has significant chronic left-sided deficits from a previous CVA back in June. Daughter states on Tuesday night she began complaining that her arms were not working . She normally uses her right arm fairly normally (i.e to hold coffee and to use her cane). Daughter states by Tuesday morning she was having significant right sided weakness for which they called an ambulance and were seen at [facility]. She had CTA imaging of her head/neck with no evidence of LVO. CT head was unremarkable. We were able to obtain these records and interestingly enough-they do not mention anything regarding right sided weakness. Patient and daughter adamantly tell me symptoms started on the timeline they originally stated. CT scan today showing chronic appearing infarct involving her right darling radiata-new since her scan in June. There is suggestion of a left darling radiata subacute infarct with recommendations to follow-up with MRI. At this time patient is not a TNK candidate (previous stroke within 3 months and symptoms beginning over 24 hours ago). We will admit to hosptalist at this time as she is unable to care for herself at home. Spoke to Dr. Daugherty who will admit. MRI order placed. Medical Records I reviewed the patient's medical records. Lab Data I reviewed the patient's lab results. 08/19/25 10:43 08/19/25 10:43 Radiology Impressions Chest X-Ray 08/19/25 10:20 Impression: Atherosclerosis and hyperinflation. Head CT 08/19/25 12:07 IMPRESSION: 1. No evidence of intracranial hemorrhage or mass effect. 2. Infarct RIGHT darling radiata is new since 06/23/2025 but has a chronic appearance 3. Suggestion of developing low-attenuation change in the LEFT darling radiata internal capsule may represent subacute ischemia. This can be followed up with MRI. 4. Vascular calcification. Laboratory Results WBC 4.28 10^3/uL (3.29-11.43) 08/19/25 10:43 RBC 3.88 10^6/uL (3.85-5.65) 08/19/25 10:43 Hgb 10.60 g/dL (11.27-16.99) L 08/19/25 10:43 Hct 33.9 % (36-47) L 08/19/25 10:43 MCV 87.4 fl (85-98) 08/19/25 10:43 MCH 27.3 pg (27-33) 08/19/25 10:43 MCHC 31.3 g/dL (30-55) 08/19/25 10:43 RDW 17.5 % (12.1-15.1) H 08/19/25 10:43 Plt Count 484 10^3/cmm (157-399) H 08/19/25 10:43 MPV 8.7 fL (7.4-10.4) 08/19/25 10:43 Neut % (Auto) 73.4 % 08/19/25 10:43 Lymph % (Auto) 16.8 % 08/19/25 10:43 Thomas % (Auto) 7.5 % 08/19/25 10:43 Eos % (Auto) 1.6 % 08/19/25 10:43 Baso % (Auto) 0.5 % 08/19/25 10:43 Neut # (Auto) 3.14 10^3/uL (1.8-7.7) 08/19/25 10:43 Lymph # (Auto) 0.7 10^3/uL (0.8-4.8) L 08/19/25 10:43 Thomas # (Auto) 0.3 10^3/uL (0.2-0.9) 08/19/25 10:43 Eos # (Auto) 0.1 10^3/uL (0.0-0.8) 08/19/25 10:43 Baso # (Auto) 0.0 10^3/uL (0.0-0.1) 08/19/25 10:43 Nucleated RBC % (auto) 0 % 08/19/25 10:43 Nucleated RBCs # 0.0 /100WBC 08/19/25 10:43 PT 13.30 SECONDS (12.1-14.9) 08/19/25 10:43 INR 0.94 (0.8-1.2) 08/19/25 10:43 APTT 27.1 SECONDS (23.9-36.7) 08/19/25 10:43 Sodium 130 mmol/L (136-145) L 08/19/25 10:43 Potassium 4.7 mmol/L (3.5-5.1) 08/19/25 10:43 Chloride 95 mmol/L (98-107) L 08/19/25 10:43 Carbon Dioxide 22 mmol/L (22-29) 08/19/25 10:43 Anion Gap 17.7 (5-19) 08/19/25 10:43 BUN 14 mg/dL (8-23) 08/19/25 10:43 Creatinine 0.3 mg/dL (0.5-0.9) L 08/19/25 10:43 GFR Calculation Not Reportable 08/19/25 10:43 Glucose 91 mg/dL (65-115) 08/19/25 10:43 Calculated Osmolality 270 mOsm/kg (285-295) L 08/19/25 10:43 Calcium 9.6 mg/dL (8.5-10.5) 08/19/25 10:43 Total Bilirubin 0.2 mg/dL (0.15-1.2) 08/19/25 10:43 AST 16 U/L (0-32) 08/19/25 10:43 ALT 16 U/L (0-33) 08/19/25 10:43 Alkaline Phosphatase 172 U/L (35-105) H 08/19/25 10:43 Creatine Kinase 37 U/L (26-192) 08/19/25 10:43 Total Protein 7.7 g/dL (6.6-8.7) 08/19/25 10:43 Albumin 3.6 g/dL (3.5-5.2) 08/19/25 10:43 Globulin 4.1 g/dL (1.3-4.6) 08/19/25 10:43 Coronavirus 229E (PCR) Not detected (NOT DETECT) 08/19/25 10:43 SARS-CoV-2 (PCR) Not detected (NOT DETECT) 08/19/25 10:43 All radiology interpretation(s) finalized by discharge Discharge Plan Discharge Patient Disposition: Placed in Observation Admit Provider: Semaj Daugherty Clinical Impression: Acute right-sided weakness, History of CVA with residual deficit Coding Level of Care Code ED Furnace Cleaner for Stephaniebunny Fwkera NIH stroke score NIHSS Level Of Consciousness - 1a: 0 Level Of Consciousness Questions - 1b: Both Correct Level Of Consciousness Commands - 1c: Both Correct Best Gaze - 2: Normal Visual Hughes - 3: No Visual Loss Facial Palsy - 4: Normal Motor Arm Right - 5: Effort Against [place] Motor Arm Left - 5: Effort Against [place] (chronic deficit) Motor Leg Right - 6: Effort Against [place] Motor Leg Left - 6: Effort Against [place] (chronic deficit) Limb Ataxia - 7: Absent Sensory - 8: Normal Best Language - 9: No Aphasia Dysarthia - 10: Normal Extinction And Inattention - 11: 0 Score Total Score: 8 Documented by User: Ellis Singleton DO 08/19/25 16:13 HPI - Weakness General: Chief complaint: Weakness Stated complaint: weakness all over, unable to keep head up Time Seen by Provider: 08/19/25 10:06 Related Data Home Medications ?Medication ?Instructions ?Recorded ?Confirmed clobetasol 0.05 % topical ointment 1 applic topical BID PRN Rash 07/18/25 08/19/25 potassium chloride 8 mEq 8 meq PO DAILY 08/19/25 08/19/25 tablet,extended release sucralfate 1 gram tablet 1 g PO Q12H 08/19/25 08/19/25 Previous Rx's ?Medication ?Instructions ?Recorded albuterol sulfate 90 mcg/actuation 1 inh inhalation Q6H PRN shortness 06/21/25 aerosol inhaler (Ventolin HFA) of breath or wheezing #8.5 grams fluticasone 250 mcg-salmeterol 50 1 inh inhalation BID 30 days #60 ea 06/21/25 mcg/dose blistr powdr for inhalation (Advair Diskus) pantoprazole 40 mg tablet,delayed 40 mg PO BID 90 days #180 tabs 06/21/25 release clopidogrel 75 mg tablet See Rx Instructions .Route 07/23/25 .COMPLEX #30 tabs lidocaine 5 % topical patch See Rx Instructions topical 08/07/25 .COMPLEX 30 days #30 ea hydrocodone 5 mg-acetaminophen 325 1 tab PO Q12H PRN pain 30 days #60 08/13/25 mg tablet tabs Allergies Allergy/AdvReac Type Severity Reaction Status Date / Time sulfasalazine AdvReac Intermediate severe N/V Verified 08/05/25 11:08 PFSH ED PFSH: Medical History Chronic pain of both knees Panic attacks Left-sided weakness Medication refill Mixed hyperlipidemia Skin abrasion Cellulitis of right breast Skin sore Erosive osteoarthritis of both hands Seropositive rheumatoid arthritis of multiple sites Osteoarthritis Joint pain Positive DAIANA (antinuclear antibody) High risk medication use Immunization counseling Rheumatoid arthritis with rheumatoid factor Surgical History History of tubal ligation Family History Brother Cancer Prostate Other Rheumatoid arthritis Denies family history of Diabetes Lupus CAD (coronary artery disease) Hyperlipidemia Chronic kidney disease (CKD) Lung disease Hypertension Stroke Social History Smoking and tobacco/nicotine status: current every day tobacco/nicotine user Second hand smoke exposure: No Alcohol intake: former Substance/Drug Use: never Caregiver/support person: No Lives independently: Yes Household members: none Housing: House Marital status: / Number of children: 3 service: No Current occupational status: retired Do you think of yourself as: Straight/Heterosexual Current gender identity: Female Physical Exam Neuro: KAREN COMA SCALE: document GCS findings Karen coma scale total score: 15 Course Vital Signs: Vital signs: Vital Signs Temperature 96.2 F L 08/19/25 15:38 Pulse Rate 66 08/19/25 15:38 Respiratory Rate 14 08/19/25 15:38 Blood Pressure 125/75 08/19/25 15:38 Pulse Oximetry 93 08/19/25 15:38 Oxygen Delivery Me thod Room Air 08/19/25 15:38 MDM - Weakness Medical Decision Making Patient is a 75-year-old female here along with her daughter who is her primary caregiver with concerns of weakness/right sided weakness. Patient has significant chronic left-sided deficits from a previous CVA back in June. Daughter states on Tuesday night she began complaining that her arms were not working . She normally uses her right arm fairly normally (i.e to hold coffee and to use her cane). Daughter states by Tuesday morning she was having significant right sided weakness for which they called an ambulance and were seen at [facility]. She had CTA imaging of her head/neck with no evidence of LVO. CT head was unremarkable. We were able to obtain these records and interestingly enough-they do not mention anything regarding right sided weakness. Patient and daughter adamantly tell me symptoms started on the timeline they originally stated. CT scan today showing chronic appearing infarct involving her right darling radiata-new since her scan in June. There is suggestion of a left darling radiata subacute infarct with recommendations to follow-up with MRI. At this time patient is not a TNK candidate (previous stroke within 3 months and symptoms beginning over 24 hours ago). We will admit to hosptalist at this time as she is unable to care for herself at home. Spoke to Dr. Daugherty who will admit. MRI order placed. Chart reviewed and patient discussed with midlevel. Agree with assessment and plan. Lab Data 08/19/25 10:43 08/19/25 10:43 Radiology Impressions Chest X-Ray 08/19/25 10:20 Impression: Atherosclerosis and hyperinflation. Head CT 08/19/25 12:07 IMPRESSION: 1. No evidence of intracranial hemorrhage or mass effect. 2. Infarct RIGHT darling radiata is new since 06/23/2025 but has a chronic appearance 3. Suggestion of developing low-attenuation change in the LEFT darling radiata internal capsule may represent subacute ischemia. This can be followed up with MRI. 4. Vascular calcification. Laboratory Results WBC 4.28 10^3/uL (3.29-11.43) 08/19/25 10:43 RBC 3.88 10^6/uL (3.85-5.65) 08/19/25 10:43 Hgb 10.60 g/dL (11.27-16.99) L 08/19/25 10:43 Hct 33.9 % (36-47) L 08/19/25 10:43 MCV 87.4 fl (85-98) 08/19/25 10:43 MCH 27.3 pg (27-33) 08/19/25 10:43 MCHC 31.3 g/dL (30-55) 08/19/25 10:43 RDW 17.5 % (12.1-15.1) H 08/19/25 10:43 Plt Count 484 10^3/cmm (157-399) H 08/19/25 10:43 MPV 8.7 fL (7.4-10.4) 08/19/25 10:43 Neut % (Auto) 73.4 % 08/19/25 10:43 Lymph % (Auto) 16.8 % 08/19/25 10:43 Thomas % (Auto) 7.5 % 08/19/25 10:43 Eos % (Auto) 1.6 % 08/19/25 10:43 Baso % (Auto) 0.5 % 08/19/25 10:43 Neut # (Auto) 3.14 10^3/uL (1.8-7.7) 08/19/25 10:43 Lymph # (Auto) 0.7 10^3/uL (0.8-4.8) L 08/19/25 10:43 Thomas # (Auto) 0.3 10^3/uL (0.2-0.9) 08/19/25 10:43 Eos # (Auto) 0.1 10^3/uL (0.0-0.8) 08/19/25 10:43 Baso # (Auto) 0.0 10^3/uL (0.0-0.1) 08/19/25 10:43 Nucleated RBC % (auto) 0 % 08/19/25 10:43 Nucleated RBCs # 0.0 /100WBC 08/19/25 10:43 PT 13.30 SECONDS (12.1-14.9) 08/19/25 10:43 INR 0.94 (0.8-1.2) 08/19/25 10:43 APTT 27.1 SECONDS (23.9-36.7) 08/19/25 10:43 Sodium 130 mmol/L (136-145) L 08/19/25 10:43 Potassium 4.7 mmol/L (3.5-5.1) 08/19/25 10:43 Chloride 95 mmol/L (98-107) L 08/19/25 10:43 Carbon Dioxide 22 mmol/L (22-29) 08/19/25 10:43 Anion Gap 17.7 (5-19) 08/19/25 10:43 BUN 14 mg/dL (8-23) 08/19/25 10:43 Creatinine 0.3 mg/dL (0.5-0.9) L 08/19/25 10:43 GFR Calculation Not Reportable 08/19/25 10:43 Glucose 91 mg/dL (65-115) 08/19/25 10:43 Calculated Osmolality 270 mOsm/kg (285-295) L 08/19/25 10:43 Calcium 9.6 mg/dL (8.5-10.5) 08/19/25 10:43 Total Bilirubin 0.2 mg/dL (0.15-1.2) 08/19/25 10:43 AST 16 U/L (0-32) 08/19/25 10:43 ALT 16 U/L (0-33) 08/19/25 10:43 Alkaline Phosphatase 172 U/L (35-105) H 08/19/25 10:43 Creatine Kinase 37 U/L (26-192) 08/19/25 10:43 Total Protein 7.7 g/dL (6.6-8.7) 08/19/25 10:43 Albumin 3.6 g/dL (3.5-5.2) 08/19/25 10:43 Globulin 4.1 g/dL (1.3-4.6) 08/19/25 10:43 Coronavirus 229E (PCR) Not detected (NOT DETECT) 08/19/25 10:43 SARS-CoV-2 (PCR) Not detected (NOT DETECT) 08/19/25 10:43 Discharge Plan Discharge Patient Disposition: Placed in Observation Admit Provider: Semaj Daugherty Clinical Impression: Acute right-sided weakness, History of CVA with residual deficit Coding Level of Care Code ED Furnace Cleaner for Lashanda Weston NIH stroke score Score Total Score: 8
[2025-08-19 10:51] LABS: Hematocrit 33.9 % (36-47); Hemoglobin 10.60 g/dL (11.27-16.99); Mean Corpuscular HGB Conc 31.3 g/dL (30-55); Mean Corpuscular Hemoglobin 27.3 pg (27-33); Mean Corpuscular Volume 87.4 fl (85-98); Nucleated Red Blood Cells % 0 %; Platelet Count 484 10^3/cmm (157-399); Red Blood Count 3.88 10^6/uL (3.85-5.65); White Blood Count 4.28 10^3/uL (3.29-11.43)
[2025-08-19 11:02] LABS: INR 0.94 (0.8-1.2); Partial Thromboplastin Time 27.1 SECONDS (23.9-36.7); Prothrombin Time 13.30 SECONDS (12.1-14.9)
[2025-08-19 11:05] LABS: Alanine Aminotransferase 16 U/L (0-33); Albumin Level 3.6 g/dL (3.5-5.2); Alkaline Phosphatase 172 U/L (35-105); Anion Gap 17.7 (5-19); Aspartate Amino Transferase 16 U/L (0-32); Blood Urea Nitrogen 14 mg/dL (8-23); Calcium 9.6 mg/dL (8.5-10.5); Carbon Dioxide 22 mmol/L (22-29); Chloride 95 mmol/L (98-107); Creatinine Clr Calc Pharmacy 37.5510; Globulin 4.1 g/dL (1.3-4.6); Glucose 91 mg/dL (65-115); Osmolality Calculated 270 mOsm/kg (285-295); Potassium 4.7 mmol/L (3.5-5.1); Sodium 130 mmol/L (136-145); Total Protein 7.7 g/dL (6.6-8.7)
--- NOTE | 2025-08-19 12:07 | CT_ITS ---
WS: [id number] CT HEAD TECHNIQUE: Noncontrast CT of the head obtained from the skullbase to the vertex. CLINICAL INFORMATION: R sided weakness COMPARISON: None. DLP: 977.[address] scans at [facility] use at least one of these dose optimization techniques: automated exposure control; mA and/or kV adjustment per patient size (includes targeted exams where dose is matched to clinical indication); or iterative reconstruction. FINDINGS: No evidence of intracranial hemorrhage or mass effect. Ventricular system and basal cisterns are patent. Mild small vessel changes with mild parenchymal volume loss. No extra-axial fluid collections. No evidence of mass or mass effect. Vascular calcification. Infarct RIGHT darling radiata is new since but has a chronic appearance. aSuggestion of developing low-attenuation change in the LEFT darling radiata internal capsule may represent subacute ischemia. This can be followed up with MRI Paranasal sinuses and mastoid air cells are well aerated. .Normal visualized soft tissues. CT/CT head wo con* [id number] IMPRESSION: 1. No evidence of intracranial hemorrhage or mass effect. 2. Infarct RIGHT darling radiata is new since 06/23/2025 but has a chronic appea lizz 3. Suggestion of developing low-attenuation change in the LEFT darling radiata internal capsule may represent subacute ischemia. This can be followed up with MRI. 4. Vascular calcification.
--- NOTE | 2025-08-19 12:59 | MRR_ITS ---
PROCEDURE INFORMATION: Exam: MR Head Without Contrast Exam date and time: 08/19/2025 4:34 PM Age: 75 years old Clinical indication: Weakness, extremity; PT presents with increased weakness. Patient has HX of stroke and left sided deficits. Patient can now not move her right extremities. Patient is on blood thinners. Lkw yesterday; Additional info: R sided weakness, abn CT scan TECHNIQUE: Imaging protocol: Magnetic resonance imaging of the head without contrast. COMPARISON: CT head wo con* [id number] 08/19/2025 12:20 PM FINDINGS: Brain: There is a 1.4 cm rounded focus of acute ischemia involving the lateral portion of the left thalamic nucleus. No evidence of hemorrhage or significant mass effect. No midline shift noted. An additional 5 mm focus of ischemia involves the medial aspect of the left frontal lobe superiorly. Chronic ischemic change can be seen throughout the periventricular white matter bilaterally. No other acute infarct noted. Cerebral ventricles: Normal. No ventriculomegaly. Bones: Unremarkable. Paranasal sinuses: Normal as visualized. No acute sinusitis. Mastoid air cells: Normal as visualized. No mastoid effusion. Orbital cavities: Unremarkable. Soft tissues: Unremarkable. MR/MR head wo con* [id number] IMPRESSION: Small acute infarcts involving the left thalamic nucleus and left frontal lobe. No evidence of hemorrhage.
[2025-08-19 13:05] LABS: Coronavirus 229E,HKU1,NL63,OC4 Not Detected (NOT DETECT); Parainfluenza Virus Type 1 Not Detected (NOT DETECT); Parainfluenza Virus Type 2 Not Detected (NOT DETECT); Parainfluenza Virus Type 3 Not Detected (NOT DETECT); Parainfluenza Virus Type 4 Not Detected (NOT DETECT); SARS-COV-2 Not Detected (NOT DETECT)
--- NOTE | 2025-08-19 14:42 | P.HP_ITS ---
Providers/Chief Complaint 2 Admitting Physician: Semaj Daugherty MD Primary Care Provider: RU Griggs Chief Complaint: weakness all over, unable to keep head up History of Present Illness Jeny Billings is a 75 year old female presenting with new right sided weakness that started on Tuesday. PMHx is significant for a stroke in June that resulted in left upper and lower extremity weakness. She has been getting home health rehab about twice a week for this. Presented to [facility] on Tuesday with new right sided weakness and no new lesions were discovered on scans then and she was sent home with diagnosis of low sodium. She presents again to this hospital for second opinion. Currently right upper and lower extremities are weaker than the left side which is new over the weekend. The patient lives at home and is now unable to care for herself at all. Review of Systems 2 Const: Denies: fever(s), chills or body aches Eyes: Denies: change in vision ENMT: Denies: throat pain or odynophagia Card: Denies: chest pain or palpitations Resp: Denies: dyspnea, productive cough or chest congestion GI: Denies: abdominal pain, nausea or vomiting : Denies: dysuria Musc: Denies: neck pain, back pain, extremity pain or joint swelling Skin/Breast: Denies: rash, pruritus or erythema Neuro: Reports: weakness in extremities Psych: Denies: anxiety or depression Medications/Allergies Home Medications ?Medication ?Instructions ?Recorded ?Confirmed ?Last Taken ?Type albuterol sulfate 90 mcg/actuation 1 inh inhalation Q6 H PRN shortness 06/21/25 08/19/25 Unknown Rx aerosol inhaler (Ventolin HFA) of breath or wheezing # 8.5 grams fluticasone 250 mcg-salmeterol 50 1 inh inhalation BID 30 days #60 ea 06/21/25 08/19/25 Unknown Rx mcg/dose blistr powdr for inhalation (Advair Diskus) pantoprazole 40 mg tablet,delayed 40 mg PO BID 90 days #180 tabs 06/21/25 08/19/25 08/18/25 Rx release clobetasol 0.05 % topical ointment 1 applic topical BI D PRN Rash 07/18/25 08/19/25 Unknown History clopidogrel 75 mg tablet See Rx Instructions .Route 0 07/23/25 08/19/25 08/18/25 Rx .COMPLEX #30 tabs lidocaine 5 % topical patch See Rx Instructions topica l 08/07/25 08/19/25 Unknown Rx .COMPLEX 30 days #30 ea hydrocodone 5 mg-acetaminophen 325 1 tab PO Q12H PRN p ain 30 days #60 08/13/25 08/19/25 Unknown Rx mg tablet tabs potassium chloride 8 mEq 8 meq PO DAILY 08/19/25 1005/08 Unknown History tablet,extended release sucralfate 1 gram tablet 1 g PO Q12H 08/19/25 5 Unknown History Allergies Allergy/AdvReac Type Severity Reaction Status Date / Time sulfasalazine AdvReac Intermediate severe N/V Verified 08/05/25 11:08 PFSH Acute 2 PFSH: Medical History (Updated 08/19/25 @ 14:05 by LAVERN Casarez) Chronic pain of both knees Panic attacks Left-sided weakness Medication refill Mixed hyperlipidemia Skin abrasion Cellulitis of right breast Skin sore Erosive osteoarthritis of both hands Seropositive rheumatoid arthritis of multiple sites Osteoarthritis Joint pain Positive DAIANA (antinuclear antibody) High risk medication use Immunization counseling Rheumatoid arthritis with rheumatoid factor Surgical History History of tubal ligation Family History Brother Cancer Prostate Other Rheumatoid arthritis Denies family history of Diabetes Lupus CAD (coronary artery disease) Hyperlipidemia Chronic kidney disease (CKD) Lung disease Hypertension Stroke Social History Smoking and tobacco/nicotine status: current every day tobacco/nicotine user Second hand smoke exposure: No Alcohol intake: former Substance/Drug Use: never Caregiver/support person: No Lives independently: Yes Household members: none Housing: House Marital status: / Number of children: 3 service: No Current occupational status: retired Do you think of yourself as: Straight/Heterosexual Current gender identity: Female Vitals/I&O/Wt Last Vital Signs Temp 97.9 F 08/19/25 10:05 Pulse 67 08/19/25 13:55 Resp 16 08/19/25 10:05 BP 168/100 08/19/25 13:55 Pulse Ox 98 08/19/25 13:55 O2 Del Method Room Air 08/19/25 14:13 Weight last 48 hrs Weight 38.555 kg Weight 38.555 kg Physical Exam 2 Const: COMMON NORMALS: no acute distress, average body habitus and patient oriented x3 HENMT: COMMON NORMALS: normocephalic and atraumatic Eye: COMMON NORMALS: Equal, round and reactive pupils present, EOMs intact bilaterally and no papilledema Lymph: LYMPHATIC: no lymphadenopathy noted and no lymphedema noted Resp: COMMON NORMALS: normal respiratory effort, No retractions, No use of accessory muscles and clear to auscultation bilaterally Cardio: COMMON NORMALS: no JVD, regular rate, regular rhythm, S1 normal heart sound present, S2 normal heart sound present, No gallops present (Cardio), No murmurs present (Cardio) and No rub (Cardio) GI: COMMON NORMALS: Soft to palpation, non-tender, No hepatosplenomegaly present and no masses Extremity: COMMON NORMALS: no clubbing, cyanosis or edema Neuro: COMMON NORMALS: patient oriented x3 and CN's II-XII intact bilaterally (strength 2/5 on right, 3/5 on left) Data 08/19/25 10:43 08/19/25 10:43 A&P Assessment and plan 1. History of CVA with residual deficit: 2. Acute right-sided weakness: Plan: 75 year old female presenting with extremity weakness, right > left. Recent CVA in June - CT head here shows right darling radiata infarct which appears chronic, new from 06/23 with left sided low attenuation of darling radiata, no intracranial hemorrhage or mass. - cont. plavix, add ASA - pending MRI - A1c, lipid panel COPD - cont. home inhalers or eq. GERD - cont. PPI, carafate Hyponatremia - mild at 130 - monitor on NS at 75 ml/hr - avoid salt restrictions Diet: regular PPx: lovenox, SCDs Disposition - pending MRI - full code PDMP PDMP Reviewed: Not Reviewed Attestations 2 Medical Necessity Statement*: Observation status for right sided weakness. Time Spent in Patient Care: 16 - 35 minutes (>than 50% of time sp ent in counselling and/or direct pt care on unit) . Coding Level of Care Code Acute Code for Chg Fwd Diagnoses History of CVA with residual deficit I69.30 Acute right-sided weakness R53.1
[2025-08-19] MEDS: HYDROcodone-acetaminophen 5-325 mg Tablet 1 TAB PO (20:21)
[2025-08-19] MEDS: lactulose oral liq 20 gm/30 mL UDC 40 GM PO (23:06)
[2025-08-19] MEDS: fluticasone nasal spray 16gm Btl 1 SPRAY NASAL (23:07)
[2025-08-20 03:24] LABS: Hematocrit 30.8 % (36-47); Hemoglobin 9.90 g/dL (11.27-16.99); Mean Corpuscular HGB Conc 32.1 g/dL (30-55); Mean Corpuscular Hemoglobin 27.8 pg (27-33); Mean Corpuscular Volume 86.5 fl (85-98); Nucleated Red Blood Cells % 0 %; Platelet Count 497 10^3/cmm (157-399); Red Blood Count 3.56 10^6/uL (3.85-5.65); White Blood Count 4.20 10^3/uL (3.29-11.43)
[2025-08-20 03:49] LABS: Anion Gap 17.0 (5-19); Blood Urea Nitrogen 16 mg/dL (8-23); Calcium 9.5 mg/dL (8.5-10.5); Carbon Dioxide 20 mmol/L (22-29); Chloride 102 mmol/L (98-107); Creatinine Clr Calc Pharmacy 37.5510; Glucose 105 mg/dL (65-115); Magnesium 2.0 mg/dL (1.7-2.3); Osmolality Calculated 282 mOsm/kg (285-295); Potassium 4.0 mmol/L (3.5-5.1); Sodium 135 mmol/L (136-145)
[2025-08-20 03:52] LABS: Estmated Average Glucose 111; Hemoglobin A1C 5.5 % (4.0-6.0)
[2025-08-20 03:53] LABS: Cholesterol 126 mg/dL (0-200); HDL Cholesterol 42 mg/dL (60-100); Triglycerides 65 mg/dL (0-150)
[2025-08-20 04:00] VITALS: BP 151/66; PULSE 81; RESP 22; TEMP 36.9; O2SAT 94
[2025-08-20] MEDS: polyethylene glycol 3350 Pkt 17 gm PO (05:41)
[2025-08-20 07:29] VITALS: BP 153/75; PULSE 78; RESP 19; TEMP 37; O2SAT 97
[2025-08-20 07:50] VITALS: PULSE 73; RESP 16; O2SAT 99
--- NOTE | 2025-08-20 09:46 | PC.CHAP ---
Pastoral Care Encounter/Spiritual Assessment Type of Contact [] Declined carbonation tester visit [] Patient/Family/Request visit [] Outpatient visit [] Follow-up visit [] Physician referral [] Code/Alert [x] Routine visit [] Staff referral [] Actively dying [] Patient sleeping [x] Family support [] [] Out of room [] Palliative care [] [] Receiving care in room [] Pre-surgical visit [] Trauma [] Long length of stay [] ICU visit [] Other: Relational/Emotional Strength [x] Patient feels connected with others/family/visitors/staff [] Distress [] Loneliness/isolation [] Abandonment Spirituality of Patient [x] Person of Micki [] Attends Adventism of their Micki [x] Believes in Prayer [] Reads Bible or Presybeterian materials [] There are Spiritual issues to be addressed Business Project Manager Interventions [x] Prayer [x] Active listening [x] Non-anxious presence [x] Spiritual/emotional support [] Crisis/trauma care [] Spiritual counseling [] Bereavement support [] Provided bereavement packet [] Provided Bible/devotional materials [] Provided toy/stuffed animal, coloring book to patient or family member [] Provided Communion [] Anointing/[place] [] Salvation [x] Completed spiritual assessment [] Other: Impact on Illness or Injury [] Angry [] Fearful [] Anxious [] Often cries [] Exhaustion [] Unable to work [] Unable to attend catholic [] Unable to walk/stand [] Unable to read [] Unable to drive [] Unable to eat/drink [] Unable to sleep [] Unable to be with family [] Patient intubated [] Other: Summary Time spent with patient 5 min
--- NOTE | 2025-08-20 10:42 | P.DS_ITS ---
Discharge Providers Date of Admission: 08/19/25 13:21 Date of Discharge: August 20, 2025 Attending Provider at Admission: Semaj Daugherty MD Attending Provider at Discharge: Semaj Daugherty MD Primary Care Provider: RU Griggs Diagnoses at Discharge Discharge Diagnosis 1. History of CVA with residual deficit: 2. Acute right-sided weakness: Reason for Visit Reason for Visit: weakness all over, unable to keep head up Hospital Course Hospital Course 75 year old female presenting with extremity weakness, right > left. Acute CVA Recent CVA in June - CT head here shows right darling radiata infarct which appears chronic, new from 06/23 with left sided low attenuation of darling radiata, no intracranial hemorrhage or mass. - MRI with small acute infarcts of the left thalamic nucleus and left frontal lobe, no hemorrhage. - recent head/neck CTA with no significant cervical arterial stenosis or occlusion, no intracranial large vessel arterial stenosis or occlusion. - subcentimeter aneurysm at 0.3 cm noted, follow up with repeat scan - cont. plavix, add ASA - A1c 5.5, nondiabetic - lipid panel with LDL of 71 - the patient was recently taken off statin, but with ongoing CVA, recommendation is to keep on statin. COPD - cont. home inhalers or eq. GERD - cont. PPI, carafate Hyponatremia - mild at 130, improved to 135 - monitor on NS at 75 ml/hr - avoid salt restrictions Diet: regular PPx: lovenox, SCDs Disposition - patient is not wanting to go to Skilled rehab. Plan for discharge today for home with home health. - recommend follow up with neurology in 2-4 weeks after discharge Physical Exam Narrative: Physical Exam Const: no acute distress, average body habi tus and patient or iented x3 HENMT: normocephalic and atraumatic Eye: Equal, round and r eactive pupils pre sent Lymph: no lymphadenopathy noted and no lymp hedema noted Resp: normal respiratory effort, No retrac tions, No use of a ccessory muscles a nd clear to auscul tation bilaterally Cardio: no JVD, regular ra te, regular rhythm , S1/S2 normal, No gallops, murmurs, and No rubs GI: Soft to palpation, non-tender, No he patosplenomegaly p resent and no mass es Extremity: no clubbing, cyano sis or edema Neuro: patient oriented x 3 and CN's II-XII intact bilaterally , strength 2/5 on right, 3/5 on left Discharge Data Studies Completed and Pending Completed Studies During Hospitalization Category Date Time Status CT head wo con* [id number] Stat Cat Scan 08/19/25 12:07 Completed XR chest 1V portable [id number] Urgent Exams 08/19/25 10:20 Completed MR head wo con* [id number] Stat MRI 08/19/25 12:59 Completed Pending at discharge Category Date Time Status Urinalysis Stat Lab 08/19/25 10:20 Uncollected Radiology Impressions Chest X-Ray 08/19/25 10:20 Impression: Atherosclerosis and hyperinflation. Head CT 08/19/25 12:07 IMPRESSION: 1. No evidence of intracranial hemorrhage or mass effect. 2. Infarct RIGHT darling radiata is new since 06/23/2025 but has a chronic appearance 3. Suggestion of developing low-attenuation change in the LEFT darling radiata internal capsule may represent subacute ischemia. This can be followed up with MRI. 4. Vascular calcification. Head MRI 08/19/25 12:59 IMPRESSION: Small acute infarcts involving the left thalamic nucleus and left frontal lobe. No evidence of hemorrhage. Laboratory Results WBC 4.20 10^3/uL (3.29-11.43) 08/20/25 02:47 RBC 3.56 10^6/uL (3.85-5.65) L 08/20/25 02:47 Hgb 9.90 g/dL (11.27-16.99) L 08/20/25 02:47 Hct 30.8 % (36-47) L 08/20/25 02:47 MCV 86.5 fl (85-98) 08/20/25 02:47 MCH 27.8 pg (27-33) 08/20/25 02:47 MCHC 32.1 g/dL (30-55) 08/20/25 02:47 RDW 17.2 % (12.1-15.1) H 08/20/25 02:47 Plt Count 497 10^3/cmm (157-399) H 08/20/25 02:47 MPV 9.0 fL (7.4-10.4) 08/20/25 02:47 Neut % (Auto) 74.2 % 08/20/25 02:47 Lymph % (Auto) 18.6 % 08/20/25 02:47 [place] % (Auto) 5.7 % 08/20/25 02:47 Eos % (Auto) 0.5 % 08/20/25 02:47 Baso % (Auto) 0.5 % 08/20/25 02:47 Neut # (Auto) 3.12 10^3/uL (1.8-7.7) 08/20/25 02:47 Lymph # (Auto) 0.8 10^3/uL (0.8-4.8) 08/20/25 02:47 [place] # (Auto) 0.2 10^3/uL (0.2-0.9) 08/20/25 02:47 Eos # (Auto) 0.0 10^3/uL (0.0-0.8) 08/20/25 02:47 Baso # (Auto) 0.0 10^3/uL (0.0-0.1) 08/20/25 02:47 Nucleated RBC % (auto) 0 % 08/20/25 02:47 Nucleated RBCs # 0.0 /100WBC 08/20/25 02:47 PT 13.30 SECONDS (12.1-14.9) 08/19/25 10:43 INR 0.94 (0.8-1.2) 08/19/25 10:43 APTT 27.1 SECONDS (23.9-36.7) 08/19/25 10:43 Sodium 135 mmol/L (136-145) L 08/20/25 02:47 Potassium 4.0 mmol/L (3.5-5.1) 08/20/25 02:47 Chloride 102 mmol/L (98-107) 08/20/25 02:47 Carbon Dioxide 20 mmol/L (22-29) L 08/20/25 02:47 Anion Gap 17.0 (5-19) 08/20/25 02:47 BUN 16 mg/dL (8-23) 08/20/25 02:47 Creatinine 0.4 mg/dL (0.5-0.9) L 08/20/25 02:47 GFR Calculation Not Reportable 08/20/25 02:47 Glucose 105 mg/dL (65-115) 08/20/25 02:47 Estimat Average Glucose 111 08/20/25 02:47 Hemoglobin A1c 5.5 % (4.0-6.0) 08/20/25 02:47 Calculated Osmolality 282 mOsm/kg (285-295) L 08/20/25 02:47 Calcium 9.5 mg/dL (8.5-10.5) 08/20/25 02:47 Phosphorus 3.8 mg/dL (2.5-4.5) 08/20/25 02:47 Magnesium 2.0 mg/dL (1.7-2.3) 08/20/25 02:47 Total Bilirubin 0.2 mg/dL (0.15-1.2) 08/19/25 10:43 AST 16 U/L (0-32) 08/19/25 10:43 ALT 16 U/L (0-33) 08/19/25 10:43 Alkaline Phosphatase 172 U/L (35-105) H 08/19/25 10:43 Creatine Kinase 37 U/L (26-192) 08/19/25 10:43 Total Protein 7.7 g/dL (6.6-8.7) 08/19/25 10:43 Albumin 3.6 g/dL (3.5-5.2) 08/19/25 10:43 Globulin 4.1 g/dL (1.3-4.6) 08/19/25 10:43 Triglycerides 65 mg/dL (0-150) 08/20/25 02:47 Cholesterol 126 mg/dL (0-200) 08/20/25 02:47 LDL Cholesterol, Calc 71 mg/dL (50-129) 08/20/25 02:47 HDL Cholesterol 42 mg/dL (60-100) L 08/20/25 02:47 LDL/HDL Ratio 1.69 RATIO (0.00-3.22) 08/20/25 02:47 Cholesterol/HDL Ratio 3.00 mg/dL (0.0-4.40) 08/20/25 02:47 Coronavirus 229E (PCR) Not detected (NOT DETECT) 08/19/25 10:43 SARS-CoV-2 (PCR) Not detected (NOT DETECT) 08/19/25 10:43 Vitals Last Vital Signs Temp 98.6 F 08/20/25 07:29 Pulse 73 08/20/25 07:50 Resp 16 08/20/25 07:50 BP 153/75 08/20/25 07:29 Pulse Ox 99 08/20/25 07:50 O2 Del Method Room Air 08/20/25 07:50 O2 Flow Rate 100 08/19/25 22:11 Discharge Plan Discharge Patient Disposition: Home Health Service Condition: Stable Prescriptions: New atorvastatin [Lipitor] 40 mg tablet 40 mg PO DAILY Qty: 30 2RF aspirin 81 mg Tablet,Delayed Release (Dr/Ec) 81 mg PO DAILY Qty: 30 2RF Continued clobetasol 0.05 % ointment 1 applic topical BID PRN (Reason: Rash) pantoprazole 40 mg tablet,delayed release (DR/EC) 40 mg PO BID 90 Days Qty: 180 1RF fluticasone propion-salmeterol [Advair Diskus] 250-50 mcg/dose blister with device 1 inh inhalation BID 30 Days Qty: 60 5RF albuterol sulfate [Ventolin HFA] 90 mcg/actuation HFA aerosol inhaler 1 inh inhalation Q6H PRN (Reason: shortness of breath or wheezing) Qty: 8.5 5RF lidocaine 5 % adhesive patch,medicated See Rx Instructions topical .COMPLEX 30 Days Qty: 30 0RF Rx Instructions: leave on most painful area for up to 12 hrs topical clopidogrel 75 mg tablet See Rx Instructions .ROUTE .COMPLEX Qty: 30 1RF Dose Instruction: TAKE 1 TABLET BY MOUTH EVERY DAY Rx Instructions: TAKE 1 TABLET BY MOUTH EVERY DAY hydrocodone-acetaminophen 5-325 mg tablet 1 tab PO Q12H PRN (Reason: pain) 30 Days Qty: 60 0RF potassium chloride 8 mEq Tablet Extended Release 8 meq PO DAILY Discontinued sucralfate 1 gram tablet 1 g PO Q12H Discharge Order = DC NOW: Discharge Order (Routine); Ordered 08/20/25 Ordered By: Semaj Daugherty Referrals: MARIANNE Delacruz, MANAGER FLOAT [Primary Care Provider, Family Practice] - 08/26/25 9:45 am Patient Instructions: Stroke (DC), Stroke Prevention (DC), Opioid Safety, Stroke Stoplight, Patient Portal & Ariel Instructions Discharge Attestations Time Spent in Discharge Care*: greater than 30 min Specific Discharge Activities: educating patient, educating and/or supporting family/caregiver, discussing with pcp/other providers, discussing with case investigator/social workers/dc planners, documenting/other paperwork and evaluating patient/reviewing data Quality Metrics Clinical Quality Measures [ Cerebrovascular Accident { Contraindication to Antithrombotic: None; antithrombotic prescribed; Contraindication to Anticoagulation: Overlap treatment not indicated; Contraindication to Statin: None; Statin prescribed; Reason stroke education not provided: Stroke education provided to patient; Rehab services assessed: Physical therapy, Occupational therapy, Speech therapy; Reason rehab assessment not done: Rehab assessment done}] Coding Level of Care Code Acute Code for Chg Fwd Diagnoses History of CVA with residual deficit I69.30 Acute right-sided weakness R53.1
[2025-08-20 12:50] VITALS: BP 153/75; PULSE 73; RESP 16; TEMP 37; O2SAT 96
== END 2025-08-20 12:56 | disposition home health service (06) ==
LOC: ER 11:28 → CSU 13:22
PROVIDERS: Admitting Provider Internal Medicine; Emergency Provider Physician Assistant; PCP Nurse Practitioner Family; Visit Provider Internal Medicine
DX: R53.1 Weakness (principal); I69.30 Unspecified sequelae of cerebral infarction; K21.9 Gastro-esophageal reflux disease without esophagitis; J44.9 Chronic obstructive pulmonary disease, unspecified; E87.1 Hypo-osmolality and hyponatremia; E78.2 Mixed hyperlipidemia; M05.9 Rheumatoid arthritis with rheumatoid factor, unspecified; F17.200 Nicotine dependence, unspecified, uncomplicated
CPT/HCPCS: 36415; 70450; 70551; 71045; 80048; 80053; 80061; 82550; 83036; 83735; 84100; 85025; 85610; 85730; 87635; 93005; 94640; 96360; 96361; 96372; 97162; 97167; 99285; G0378; J1650; J7030; J7613; J7626; J9999